=== PATIENT | male | born 1980 | race Caucasian/White ===

== ENCOUNTER 2016-08-21 00:10 | Emergency (ER) | payer MEDICARE, MEDICAID ==
[~2016-08-21] VITALS: Ht 180.3 cm; Wt 111.8 kg
[2016-08-21 00:10] VITALS: Ht 180.3 cm; Wt 111.8 kg
[~2016-08-21 00:10] MED LIST: ACET325T51 PO; ALBU18HF2 INH; AMOX500C2 PO; ATOR10TA20 PO; BENZ0.5T3 PO; DIVA250T48 PO; DIVA500T55 PO; DULO30CA52 PO; DULO60CA56 PO; ESOM40CA PO; FENO160T12 PO; HYDR28OI10 TOP; INFL100V IV; LACT10SO32 PO; MELO-273 PO; METO-107 PO; METO10TA3 PO; TRAM50TA53 PO; ZIPR80CA PO
--- OUTSIDE RECORDS SUMMARY | 2016-08-21 00:14 | XMS REPORT | Referral Summary ---
Author Author [facility] Organization [facility] Address Unknown Phone Unavailable Care Team Providers Care Interior Design Director Name Role Phone Julieta Smith Primary Care Physician [phone] Encounter [facility] [id number] Date(s): 07/02/16 - 07/02/16 [facility] [address] [place] [address] ANGELA Burgess [phone] Discharge Diagnosis: Ankylosing spondylitis (disorder) Discharge Diagnosis: High risk medication use Discharge Disposition: 01-Home or Self Care Attending Physician: Sadie Davies MD Admitting Physician: Sadie Davies MD Vital Signs Most recent to 1 oldest [Reference Range]: Peripheral Pulse 68 bpm Rate [60-100 bpm] (07/02/16 1:41 PM) Blood Pressure 130/60 mmHg [90-140/60-90 mmHg] (07/02/16 1:41 PM) Problem List Condition Effective Dates Status Health Status Informant Acne(Confirmed) Resolved Allergic rhinitis Active (disorder)(Confirmed ) Allergic Active rhinitis(Confirmed) Anxiety(Confirmed) Resolved Anxiety state Active (finding)(Confirmed) Bipolar(Confirmed) Resolved Bipolar disorder Active (disorder)(Confirmed ) Abnormal blood Active sugar(Confirmed) Sleep related Active hypoventilation/hypo xemia in other disease(Confirmed) Chronic Active headaches(Confirmed) Chronic Resolved sinusitis(Confirmed) Degenerative joint Active disease of pelvis (disorder)(Confirmed ) Depression(Confirmed Resolved ) Therapeutic drug Active monitoring(Confirmed ) Essential Active hypertension (disorder)(Confirmed ) Gastroesophageal Active reflux disease (disorder)(Confirmed ) Generalized Active pruritus(Confirmed) GERD Active (gastroesophageal reflux disease)(Confirmed) H/O: substance Resolved abuse(Confirmed) Hay fever(Confirmed) Active Head Resolved trauma(Confirmed) HTN(Confirmed) Resolved Hyperammonemia(Confi Active rmed) Hyperlipidemia(Confi Resolved rmed) ilioinguinal nerve Resolved entrapment-successfu l injection(Confirmed) Insomnia(Confirmed) Active Kidney Active disease(Confirmed) Kidney stone Active (disorder)(Confirmed ) Kidney Active stones(Confirmed) Ankylosing Active spondylitis (disorder)(Confirmed ) Mixed hyperlipidemia Active (disorder)(Confirmed ) OA Resolved (osteoarthritis)(Con firmed) Obesity(Confirmed) Active patient Severe obstructive Active sleep apnea(Confirmed) Overweight Active (finding)(Confirmed) Overweight(Confirmed Active ) Sinus Active infection(Confirmed) Apnea, Active sleep(Confirmed) Current Active smoker(Confirmed) Substance Active abuse(Confirmed) tylenol Resolved overdose-hospitaliza tion (discharged 03.08.12)(Confirmed) Ulcer(Confirmed) Active Allergies, Adverse Reactions, Alerts Substance Reaction Severity Status haloperidol allergy Active traZODone allergy Medium Active Adverse Reaction Medications albuterol 90 mcg/inh inhalation powder 2 puffs, Inhalation, q4hr, # 1 Each, 0 Refill(s), Pharmacy: [facility] Start Date: 08/16/15 Status: Ordered atorvastatin 10 mg oral tablet See Instructions, TAKE 1 TABLET BY MOUTH DAILY, # 28 tabs, 3 Refill(s), eRx: [facility] Start Date: 04/30/16 Status: Ordered benztropine 0.5 mg oral tablet 0.5 mg 1 tabs, Oral, Bedtime (once a day), from , # 30 tabs, 0 Refill(s), other reason (Rx) Start Date: 12/29/14 Status: Ordered Cymbalta 60 mg oral delayed release capsule 60 mg 1 caps, Oral, Daily, do not crush or chew, # 30 caps, 5 Refill(s), Pharmacy: [id number], 1 caps Oral Daily,Instr:do not crush or chew Start Date: 01/10/15 Status: Ordered divalproex sodium 500 mg oral tablet, extended release See Instructions, Takes 1750mg daily, 0 Refill(s) Start Date: 07/11/14 Status: Ordered DULoxetine 30 mg oral delayed release capsule 30 mg 1 caps, Oral, Daily, # 30 caps, 5 Refill(s), Pharmacy: [id number], 1 caps Oral Daily Start Date: 01/10/15 Status: Ordered fenofibrate 160 mg oral tablet See Instructions, TAKE 1 TABLET BY MOUTH EVERY DAY, # 28 tabs, 3 Refill(s), [facility] : [facility] Start Date: 04/30/16 Status: Ordered Geodon 20 mg oral capsule See Instructions, 4 caps in am and 4 caps in pm, # 720 caps, 0 Refill(s), other reason (Rx) Start Date: 12/29/14 Status: Ordered hydrocortisone 1% topical cream See Instructions, APPLY TOPICALLY TO AFFECTED AREA TWICE A DAY, # 28.35 g, [facility]: [facility] Start Date: 05/08/16 Status: Ordered Keflex 500 mg oral capsule 500 mg 1 caps, Oral, QID, X 5 days, # 20 caps, 0 Refill(s), [facility]: [facility], 1 caps Oral QID,x5 days Start Date: 07/01/16 Stop Date: 07/06/16 Status: Ordered lactulose 10 g/15 mL oral and rectal liquid See Instructions, TAKE 30 MLS BY MOUTH TWICE DAILY, # 1,800 mL, 1 Refill(s), [facility]: [facility], TAKE 30 MLS BY MOUTH TWICE DAILY Start Date: 03/28/16 Status: Ordered meloxicam 7.5 mg oral tablet 7.5 mg 1 tabs, Oral, BID, # 180 tabs, 1 Refill(s), [facility]acy: [facility], 1 tabs Oral BID Start Date: 07/01/16 Status: Ordered metoclopramide 10 mg oral tablet See Instructions, TAKE ONE TABLET BY MOUTH EVERY DAY NEEDED FOR GERD/ HEARTBURN, # 28 tabs, 3 Refill(s), [facility]: [facility] Start Date: 04/30/16 Status: Ordered Metoprolol Succinate ER 50 mg oral tablet, extended release See Instructions, TAKE 1 TABLET BY MOUTH ONCE A DAY, # 28 tabs, 3 Refill(s), [facility] : [facility] Start Date: 04/30/16 Status: Ordered NexIUM 40 mg oral delayed release capsule See Instructions, TAKE ONE CAPSULE BY MOUTH EVERY DAY FOR GERD, # 28 caps, 3 Refill(s), [facility]: [facility] Start Date: 04/30/16 Status: Ordered Remicade 100 mg intravenous injection See Instructions, 5 mg/kg IV q 6 weeks, # 1 Each, 0 Refill(s), Indication: M45.9 , other reason (Rx) Start Date: 02/13/16 Status: Ordered traMADol 50 mg oral tablet 50 mg 1 tabs, Oral, QID, as needed for pain, #120 MUST LAST 30 DAYS - QOL NOTE THE CHANGE IN QUANTITY, # 120 tabs, 0 Refill(s) Start Date: 06/20/16 Status: Ordered Results No data available for this section Immunizations Given and Recorded Vaccine Date Status Refusal Reason tetanus/diphth/pertuss (Tdap) adult/adol 06/22/13 Recorded tetanus/diphth/pertuss (Tdap) adult/adol 03/10/13 Recorded influenza virus vaccine, inactivated 03/18/14 Recorded influenza virus vaccine, inactivated 03/10/13 Recorded influenza virus vaccine, live 03/10/13 Given influenza virus vaccine, live 02/11/12 Given pneumococcal 13-valent conjugate vaccine1 06/22/13 Given pneumococcal 23-polyvalent vaccine 06/22/13 Given pneumococcal 23-polyvalent vaccine 03/10/13 Recorded 1Result Comment: [01/10/2015 Uncharted] Uploaded in Error - CC Procedures Procedure Date Related Diagnosis Body Site Esophagogastroduodenoscopy and biopsy1 04/28/14 Hospital admission 07/29/10 Hip replacement 2003 1Negative For Gaffney's. Slight narrowing of distal esophagus dilated to 54 [place] Social History Social History Type Response Smoking Status Current every day smoker; Type: Cigarettes; Tobacco use per day: More than 1 pack Assessment and Plan No data available for this section
--- OUTSIDE RECORDS SUMMARY | 2016-08-21 00:14 | XMS REPORT | Continuity of Care Document ---
Author Author [facility] Organization [facility] Address Unknown Phone Unavailable Allergies Active Description Code Type Severity Reaction Onset Reported/Identified Relationship to Patient Clinical Status Yes NO NAME AVAILABLE 14208 DRUG N/A N/A Yes haloperidol NKMA N/A allergy 09/08/2013 Yes traZODone NKMA Medium allergy Adverse Reaction 09/08/2013 Yes HALOPERIDOL 45293 DRUG INGREDI High Anaphylaxis 07/05/2016 07/05/2016 Yes TRAZODONE 63623 DRUG INGREDI N/A Other 07/05/2016 07/05/2016 Medications Medication Packaging Start Date Stop Date Route Dosage Sig ALUM T MAG HYDROXIDE-SIMETH 200-200-20 MG/5ML PO SUSP 07/05/2016 Oral 30 4 TIMES DAILY PRN OLANZAPINE 10 MG PO TBDP 07/05/2016 Oral 10 2 TIMES DAILY PRN ACETAMINOPHEN 325 MG PO TABS 07/05/2016 Oral 650 EVERY 6 HOURS PRN NICOTINE POLACRILEX 2 MG MT LOZG 07/05/2016 Oral 2 EVERY 2 HOURS PRN MAGNESIUM HYDROXIDE 400 MG/5ML PO SUSP 07/05/2016 Oral 30 DAILY PRN QUETIAPINE FUMARATE 25 MG PO TABS 07/05/2016 Oral 25 4 TIMES DAILY PRN NICOTINE 21 MG/24HR TD PT24 07/06/2016 Transdermal 2 DAILY ZIPRASIDONE HCL 40 MG PO CAPS 07/06/2016 Oral 80 2 TIMES DAILY WITH MEALS LACTULOSE 20 G PO PACK 07/06/2016 Oral 10 DAILY PRN METOCLOPRAMIDE HCL 10 MG PO TABS 07/06/2016 Oral 10 DAILY PRN ALBUTEROL SULFATE HFA 108 (90 BASE) MCG/ACT IN AERS 07/06/2016 Inhalation 2 EVERY 4 HOURS PRN MELOXICAM 7.5 MG PO TABS 07/06/2016 Oral 7.5 2 TIMES DAILY PRN FENOFIBRATE 160 MG PO TABS 07/06/2016 Oral 160 DAILY BENZTROPINE MESYLATE 1 MG PO TABS 07/06/2016 Oral 0.5 2 TIMES DAILY DIVALPROEX SODIUM ER 500 MG PO TB24 07/06/2016 Oral 1500 DAILY DIVALPROEX SODIUM ER 250 MG PO TB24 07/06/2016 Oral 250 DAILY CEPHALEXIN 500 MG PO CAPS 07/06/2016 Oral 1000 2 TIMES DAILY PANTOPRAZOLE SODIUM 40 MG PO TBE 07/07/2016 Oral 40 EVERY MORNING BEFORE BREAKFAST PANTOPRAZOLE SODIUM 40 MG PO TBEC 07/07/2016 Oral 40 EVERY MORNING BEFORE BREAKFAST METOPROLOL SUCCINATE ER 50 MG PO TB24 07/07/2016 Oral 50 DAILY DULOXETINE HCL 30 MG PO CPEP 07/07/2016 Oral 60 DAILY ONDANSETRON 4 MG PO TBDP 07/07/2016 Oral 4 EVERY 6 HOURS PRN Problems Procedures Results Test Result Range CBC With Platelet and Differential - 12/15/15 18:19 Absolute Basophils 0.11 10*3/uL 0.00- 0.30 Absolute Eosinophils 0.22 10*3 0.00-0.60 Absolute Lymphocytes 2.85 10*3 1.00-4.00 Absolute Monocytes 0.92 10*3 0.20-0.80 Absolute Neutrophils 9.22 10*3 2.50-7.00 Basophils 1 % 0-2 Eosinophils 2 % 0-6 HCT 37.5 % 40.0-54.0 HGB 12.6 g/dL 12.0-16.0 Lymphocytes 21 % 20-40 MCH 28.1 pg 26.0-34.0 MCHC 33.6 g/dL 32.0-36.0 MCV 83.5 fL 80.0-96.0 Monocytes 7 % 4-8 MPV 9.9 fL 8.8-14.8 Neutrophils 69 % 50-70 Platelet Count 346 K/uL 150-400 RBC 4.49 10*6/uL 3.70-5.20 RDW 13.0 % 0.0-14.5 WBC 13.3 K/uL 5.0-10.0 i-STAT Metabolic Panel WB - 12/15/15 18:19 BUN Venous <3 mg/dl 8-26 Calcium Ionized Venous 1.17 mmol/L 1.10- 1.30 Creatinine Venous 0.8 mg/dL 0.7-1.3 Glucose Venous 99 mg/dL 70-100 Potassium, WB 2.6 mmol/L 3.5-5.1 Sodium Venous 139 mmol/L 136-145 Total CO2 Venous 27 mmol/L 24-29 Venous CL 97 mmol/L 98-109 Quantiferon TB Test - 02/13/16 14:55 Quantiferon TB Test Negative NA Negative TSH (REFLEX FREE T4 IF ABNORMAL) - 07/06/16 05:54 TSH 0.476 uIU/mL 0.400-4.000 VALPROIC ACID LEVEL, TOTAL - 07/08/16 06:28 VALPROIC ACID(DEPAKENE) 30 ug/mL 50-100 Encounters ACCT No. Visit Date/Time Discharge Status Pt. Type Provider Facility Loc./Unit Complaint [id number] 06/22/2013 10:19:00 06/22/2013 23 :59:59 CLS Outpatient
--- OUTSIDE RECORDS SUMMARY | 2016-08-21 00:15 | XMS REPORT | Continuity of Care Document ---
Author Author [facility] Organization [facility] Address Unknown Phone Unavailable Care Team Providers Care Barber Apprentice Name Role Phone PATRIZIA ONOFRE MD Primary Care Physician [phone] Insurance Providers Payer Name Policy Number Subscriber Name Relationship Medicare [id number] Pravin Melton 18 Self Mj True Fit Plan [id number] Pravin Melton 18 Self Problems Medical Problems Problem Onset Date Status NON-TOXIC INGESTION Unknown Active Bronchitis Unknown Active Mild volume depletion Unknown Active Aggie Unknown Active Puncture wound Unknown Active Puncture wound Unknown Active Sore throat Unknown Active Medications Medication Dose Route Sig Days/Qty Instructions Order Date Discontinued Date Status Ziprasidone Hcl 80 Mg PO TWICE A DAY 12/09/09 03/07/12 Discontinued Sertraline Hcl 1.5 Tab PO DAILY 04/11/08 10/06/09 Discontinued Gabapentin 1 Tab PO TWICE A DAY 12/09/09 12/20/11 Discontinued Esomeprazole Mag Trihydrate 1 Cap PO DAILY 04/11/08 10/06/09 Discontinued Atorvastatin Calcium 1 Tab PO DAILY 12/09/09 11/13/10 Discontinued Hydrocodone Bit/Acetaminophen 1 Tab PO TID PRN 04/11/08 07/12/09 Discontinued Trazodone Hcl 150 Mg PO BEDTIME 06/15/08 04/15/09 Discontinued Doxycycline Hyclate 100 Mg PO DAILY 06/15/08 07/12/09 Discontinued Adalimumab 40 Mg SQ TWICE A MONTH 12/09/09 08/13/10 Discontinued [Bystolic] 12/09/09 08/13/10 Discontinued Duloxetine Hcl 1 Tab PO DAILY 12/09/09 Active Dextromethorphan Hbr 1 Cap PO DAILY 12/09/09 08/13/10 Discontinued Esomeprazole Mag Trihydrate DAILY 12/09/09 12/20/11 Discontinued [Metoprolol] 12/09/09 09/04/10 Discontinued [Saphris] 1 Tab PO DAILY 12/09/09 08/13/10 Discontinued Divalproex Sodium 250 Mg PO DAILY 11/13/10 12/20/11 Discontinued Divalproex Sodium 1,000 Mg PO BEDTIME 12/20/11 03/07/12 Discontinued Esomeprazole Mag Trihydrate 40 Mg PO DAILY 12/20/11 Active Gabapentin 400 Mg PO TWICE A DAY 12/20/11 Active Diphenhydramine Hcl 25 Mg PO NEEDED 12/20/11 Active Divalproex Sodium 1,000 Mg PO DAILY 12/20/11 Active Paliperidone Palmitate 156 Mg IM MONTHLY 12/20/11 03/07/12 Discontinued Lorazepam 0.25 Mg PO TWICE A DAY 12/20/11 Active Propranolol Hcl 10 Mg PO DAILY 12/20/11 Active Risperidone 1 Mg PO BEDTIME 12/20/11 03/07/12 Discontinued Metoclopramide Hcl 10 Mg PO NEEDED 12/20/11 Active Metoprolol Succinate 50 Mg PO DAILY 12/20/11 Active Atorvastatin Calcium 10 Mg PO DAILY 12/20/11 04/06/12 Discontinued Ziprasidone Hcl 80 Mg PO TWICE A DAY 04/06/12 Active Atorvastatin Calcium 10 Mg PO DAILY 09/05/12 Active Infliximab Unknown Dose IV Q2MO 04/10/14 Active Tramadol HCl 50 Mg PO TWICE A DAY PRN PAIN 04/10/14 Active Albuterol Sulfate 1 Mcg INH NEEDED 04/27/14 Active Sucralfate 1200 Qty 04/27/14 Active Esomeprazole Magnesium 1 Tab PO DAILY 30 Qty 04/27/14 Active Famotidine 1 Tab PO TWICE A DAY 04/27/14 Active Social History Social History Problem Response Recorded Date/Time Chewing Tobacco Status No 06/15/2013 4:55am Hx Substance Use N HX OF SUBSTANCE ABUSE/MARIJUANA PER HX 05/12/2014 12:15am Hx Alcohol Use No 05/12/2014 12:15am Has the pt used tobacco in the last 12 months Yes 04/27/2014 8:23am Tobacco Usage smoke 04/09/2014 10:53pm Query Response Start Date Stop Date Smoking Status Current every day smoker Hospital Discharge Instructions No hospital discharge instructions. Plan of Care No plan of care. Functional Status Query Response Date Recorded Physical Hygiene Self May 12, 2014 12:15am Disabilities None May 12, 2014 12:15am Devices Used None May 12, 2014 12:15am Dressing Self May 12, 2014 12:15am Ambulation Self May 12, 2014 12:15am Diet Self May 12, 2014 12:15am Mental Status Alert May 12, 2014 12:54am Disabilities None May 12, 2014 12:15am Devices Used None May 12, 2014 12:15am Physical Hygiene Self May 12, 2014 12:15am Dressing Self May 12, 2014 12:15am Ambulation Self May 12, 2014 12:15am Diet Self May 12, 2014 12:15am Allergies, Adverse Reactions, Alerts Allergen Type Severity Reaction Status Last Updated Haloperidol Allergy Severe SEIZURE Active 05/12/14 Trazodone Allergy Unknown PRIAPRISM Active 05/12/14 Immunizations Name Given Type Hx Influenza Vaccination Y JAN 2012 Historical Hx Pneumococcal Vaccination No Historical Hx Tetanus, Diptheria, Pertussis No Historical Hx Influenza Vaccination Y JAN 2012 Historical Hx Tetanus Diptheria No Historical Hx Tetanus, Diptheria, Pertussis No Historical Hx Tetanus Toxoid Vaccination No Historical Vital Signs Acute Vital Signs Vital Response Date/Time Temperature (Fahrenheit) 97.8 deg F (96.8 - 99.1) Temperature (Calculated Celsius) 36.72477 degrees C (36.0 - 37.3) Pulse Rate (adult) 81 bpm (60 - 100) Respiratory Rate 19 breaths/min (10 - 20) O2 Sat by Pulse Oximetry 96 % (90 - 100) Blood Pressure 129/73 mm Hg Height (Feet) 5 feet Height (Inches) 11.00 inches Weight (Kilograms) 117.0 kg Body Mass Index (BMI) 40.0 Results Test Source Date Result Interp. Ref. Range Comments Acetaminophen Level April 09, 2014 10:40pm < 10 UG/ML L 10-30 TOXIC <4 HR POST INGESTION: >150 MG/L;TOXIC <12 HR POST INGESTION: >50 MG/L Activated Partial Thromboplast Time March 07, 2012 8:15pm 33.0 SEC N 24-36 Alanine Aminotransferase (ALT/SGPT) April 09, 2014 10:40pm 35 U/L N 21-72 Albumin April 09, 2014 10:40pm 4.2 G/DL N 3.5-5.0 Albumin/Globulin Ratio April 09, 2014 10:40pm 1.4 RATIO N 1.1-2.2 Alcohol, Quantitative April 09, 2014 10:40pm <10 MG/DL - Alkaline Phosphatase April 09, 2014 10:40pm 65 U/L N 38-126 Amylase Level September 16, 2010 4:30am 38 U/L N 30-110 Anion Gap April 09, 2014 10:40pm 12 MEQ/L N 5-15 Aspartate Amino Transf (AST/SGOT) April 09, 2014 10:40pm 24 U/L N 17- 59 BUN/Creatinine Ratio April 09, 2014 10:40pm 10 RATIO N 6-26 Band Neutrophils # June 15, 2013 5:15am 2.9 T/MM3 - Band Neutrophils % June 15, 2013 5:15am 19.0 % DH 0-6 Basophils # (Auto) April 09, 2014 10:40pm 0.3 T/MM3 H 0-0.2 Basophils # (Manual) March 07, 2012 8:15pm 0.2 T/MM3 N 0-0.2 Basophils % (Manual) March 07, 2012 8:15pm 1.0 % N 0-2 Basophils (%) (Auto) April 09, 2014 10:40pm 1.6 % N 0-2 Blood Urea Nitrogen April 09, 2014 10:40pm 8.0 MG/DL L 9-20 Calcium Level April 09, 2014 10:40pm 9.7 MG/DL N 8.4-10.2 Calculated Osmolality April 09, 2014 10:40pm 266 MOSM/KG N 261-280 Carbon Dioxide Level April 09, 2014 10:40pm 32 MEQ/L H 22-30 Chloride Level April 09, 2014 10:40pm 95 MEQ/L L 98-107 Cholesterol Level July 29, 2010 12:10am 120 MG/DL L 132-199 Cholesterol/HDL Ratio July 29, 2010 12:10am 4.4 RATIO N 0-5.0 Conjugated Bilirubin September 05, 2012 5:50am 0.00 MG/DL N 0.00-0.30 Creatinine April 09, 2014 10:40pm 0.8 MG/DL N 0.8-1.5 Differential Total Cells Counted September 16, 2010 4:30am 100 % - Eosinophils # (Auto) April 09, 2014 10:40pm 0.2 T/MM3 N 0-0.5 Eosinophils # (Manual) September 05, 2012 5:50am 0.9 T/MM3 H 0-0.5 Eosinophils % (Manual) September 05, 2012 5:50am 6.0 % H 0-4 Eosinophils (%) (Auto) April 09, 2014 10:40pm 1.3 % N 0-4 Globulin April 09, 2014 10:40pm 3.0 G/DL N 2.4-3.6 Glucose Level April 09, 2014 10:40pm 92 MG/DL N 75-110 Group A Streptococcus Screen September 16, 2010 4:05am Negative - Strep culture confirmation to follow Hematocrit April 09, 2014 10:40pm 41.5 % N 41-53 Hemoglobin April 09, 2014 10:40pm 14.7 GM/DL N 13.5-17.5 Influenza Type A Antigen June 15, 2013 5:12am Negative - Negative for Flu A protein antigen. Assay sensitivity isbetween 65-83%. A negative result does not exclude influenza virus infection. "Influenza FA" may be ordered if clinical presentation warrants confirmatory testing. Influenza Type B Antigen June 15, 2013 5:12am Negative - Negative for Flu B protein antigen. Assay sensitivity isbetween 65-83%. A negative result does not exclude influenza virus infection. "Influenza FA" may be ordered if clinical presentation warrants confirmatory testing. LDL Cholesterol, Calculated July 29, 2010 12:10am 52.4 L 66-159 Lipase September 05, 2012 5:50am 288 U/L N 23-300 Lymphocytes # (Auto) April 09, 2014 10:40pm 4.3 T/MM3 N 1-4.8 Lymphocytes # (Manual) June 15, 2013 5:15am 2.0 T/MM3 N 1-4.8 Lymphocytes % (Manual) June 15, 2013 5:15am 13.0 % L 23-45 Lymphocytes (%) (Auto) April 09, 2014 10:40pm 27.3 % N 23-45 Magnesium Level September 05, 2012 5:50am 1.2 MG/DL L 1.6-2.3 Mean Corpuscular Hemoglobin April 09, 2014 10:40pm 29.7 UUG N 26-34 Mean Corpuscular Hemoglobin Concent April 09, 2014 10:40pm 35.4 GM/DL N 31-37 Mean Corpuscular Volume April 09, 2014 10:40pm 83.8 UM3 N 80-100 Mean Platelet Volume April 09, 2014 10:40pm 10.2 UM3 N 9.4-12.4 Monocytes # (Auto) April 09, 2014 10:40pm 1.3 T/MM3 H 0-0.8 Monocytes # (Manual) June 15, 2013 5:15am 0.8 T/MM3 N 0-0.8 Monocytes % (Manual) June 15, 2013 5:15am 5.0 % N 0-9.0 Monocytes (%) (Auto) April 09, 2014 10:40pm 8.2 % N 0-9.0 Neutrophils # (Auto) April 09, 2014 10:40pm 9.5 T/MM3 H 1.8-7.7 Neutrophils # (Manual) June 15, 2013 5:15am 9.6 T/MM3 H 1.8-7.7 Neutrophils % (Manual) June 15, 2013 5:15am 63.0 % N 33-66 Neutrophils (%) (Auto) April 09, 2014 10:40pm 61.2 % N 33-66 Phosphorus Level September 05, 2012 5:50am 3.5 MG/DL N 2.5-4.5 Platelet Count April 09, 2014 10:40pm 305 T/MM3 N 130-400 Potassium Level April 09, 2014 10:40pm 3.3 MEQ/L L 3.6-5 Prothromb Time International Ratio March 07, 2012 8:15pm 1.06 N 0.86- 1.10 THERAPUTIC RANGE=2.00-3.00 FOR ANTI-THROMBOSIS THERAPUTIC RANGE=2.50- 3.50 FOR IMPLANTED VALVE RDW Standard Deviation April 09, 2014 10:40pm 38.9 FL N 36.9-50.2 Red Blood Count April 09, 2014 10:40pm 4.95 M/MM3 N 4.50-5.90 Salicylates Level April 09, 2014 10:40pm < 1.0 MG/DL L 2-20 Sodium Level April 09, 2014 10:40pm 139 MEQ/L N 134-144 Tests Not Done April 15, 2009 3:20am Not done - Has specimen been collected/obtained? Y Thyroid Stimulating Hormone (TSH) April 09, 2014 10:40pm 1.41 MIU/L N 0.47-4.68 Total Bilirubin April 09, 2014 10:40pm 0.40 MG/DL N 0.20-1.30 Total Protein April 09, 2014 10:40pm 7.2 G/DL N 6.3-8.2 Triglycerides Level July 29, 2010 12:10am 203 MG/DL H 40-160 Troponin I September 16, 2010 4:30am 0.013 ng/ml N 0-0.12 Unconjugated Bilirubin September 05, 2012 5:50am 0.00 MG/DL N 0.00-1.10 Urine Bilirubin April 09, 2014 10:34pm Negative - Has specimen been collected/obtained? Y Urine Blood April 09, 2014 10:34pm Negative - Has specimen been collected/obtained? Y Urine Collection Type April 09, 2014 10:34pm Cleancatch-midstream - Has specimen been collected/obtained? Y Urine Color April 09, 2014 10:34pm Yellow - Has specimen been collected/obtained? Y Urine Culture Indicated March 07, 2012 9:25pm Cult not indicated - Has specimen been collected/obtained? Y Urine Drug Screen Confirmation September 05, 2012 6:30am Sent out - Urine Glucose (UA) April 09, 2014 10:34pm Negative - Has specimen been collected/obtained? Y Urine Ketones April 09, 2014 10:34pm Negative - Has specimen been collected/obtained? Y Urine Leukocyte Esterase April 09, 2014 10:34pm Negative - Has specimen been collected/obtained? Y Urine Nitrite April 09, 2014 10:34pm Negative - Has specimen been collected/obtained? Y Urine Protein April 09, 2014 10:34pm Negative - Has specimen been collected/obtained? Y Urine RBC April 11, 2008 6:00am Not Performed - Urine Specific [place] April 09, 2014 10:34pm 1.010 L - Has specimen been collected/obtained? Y Urine Turbidity April 09, 2014 10:34pm Clear - Has specimen been collected/obtained? Y Urine Urobilinogen April 09, 2014 10:34pm 0.2 EU/DL - Has specimen been collected/obtained? Y Urine WBC April 11, 2008 6:00am Not Performed - Urine pH April 09, 2014 10:34pm 6.5 - Has specimen been collected/ obtained? Y VLDL Cholesterol July 29, 2010 12:10am 40.6 MG/DL H 0-28 Valproic Acid (Depakene) Level September 05, 2012 5:50am 80.0 UG/ML N 50- 120 White Blood Count April 09, 2014 10:40pm 15.6 T/MM3 H 4.5-11.0 Chemistry Specimen Hemolysis April 09, 2014 10:40pm < 15 0-25 0-25 : No Hemolysis.26-70: Slight Hemolysis - can falsely elevate K and Urine Protein. 71-285: Moderate Hemolysis - can falsely elevate K, Troponin I, CA 19-9, PTH, CSF GLucose, and Urine Protein, and can falsely decrease Phenytoin. 286-999: Gross Hemolysis - can falsely elevate K, Troponin I, CA 19-9, PTH, CSF Glucose, and Urine Protine, and can falsely decrease Phenytoin. Recommend specimen recollection. Urinalysis Comment April 09, 2014 10:34pm Microscopic not ind. - Has specimen been collected/obtained? Y Glucometer December 09, 2009 9:39am 100 mg/dL N 75-110 Lab Scanned Report April 10, 2014 3:42am REFERENCE LAB [id number] - EKG April 15, 2009 3:30am Complete - HDL Cholesterol Direct July 29, 2010 12:10am 27 MG/DL L 40-60 Urine Methadone Screen May 08, 2013 6:05pm Negative NG/ML - Turbidity April 09, 2014 10:40pm < 20 0-20 Reactive Lymphocytes % September 16, 2010 4:30am 3.0 % H 0-0 Glomerular Filtration Rate Calc April 09, 2014 10:40pm 111 - Reactive Lymphocytes # September 16, 2010 4:30am 0.4 T/MM3 H 0-0 Immature Granulocyte # (Auto) April 09, 2014 10:40pm 0.06 T/MM3 H 0.00-0.03 Immature Granulocyte % (Auto) April 09, 2014 10:40pm 0.4 % N 0.0-0.5 Venous Blood Lactate June 15, 2013 5:15am 2.0 MMOL/L N 0.6-2.2 Procalcitonin June 15, 2013 5:15am 0.26 NG/ML - PCT </=0.5 ng/mL - sepsis not likely;PCT >0.5 and </=2 ng/mL - sepsis possible; PCT >2 ng/mL - sepsis likely; PCT >/=10 ng/mL - systemic inflammatory response - sepsis or septic shock highly indicated. Icterus Index April 09, 2014 10:40pm < 2 0-7 Urine Acetaminophen Screen May 08, 2013 6:05pm Negative NG/ML - Urine Microscopic Not Indicated March 07, 2012 9:25pm Not indicated - Has specimen been collected/obtained? Y Blood Culture Blood June 15, 2013 5:15am NO GROWTH AFTER 5 DAYS Group A Streptococcus Culture Throat September 16, 2010 4:47am Helicobacter pylori Rapid Urease Gastric Biopsy April 28, 2014 8:34am Name: PRAVIN MELTON Unit #: [id number] : [id number] Sex: M Loc / Svc: ED DOS: 05/06/14 Signed Report #: [id number] DIAGNOSTIC IMAGING REPORT TYPE OF EXAM: FOOT RIGHT 2 VIEWS Dictated By: DREW GOMEZ MD Indication: ITS.REASON: r/o foreign body Comparison: None Findings: There is no acute fracture, dislocation or malalignment identified. Small thin linear density seen in the medial most soft tissues of the fourth toe adjacent to the distal aspect of the proximal phalanx measuring 2 mm in length. Impression: Tiny possible foreign body in the medial soft tissues of the fourth toe. This is positioned superficially at the distal aspect of the proximal phalanx. . Procedures Procedure Status Date Provider(s) COMPREHEN METABOLIC PANEL completed 04/09/14 ASSAY OF SALICYLATE completed 04/09/14 URINALYSIS AUTO W/O SCOPE completed 04/09/14 ASSAY OF ACETAMINOPHEN completed 04/09/14 ASSAY OF ETHANOL completed 04/09/14 ASSAY THYROID STIM HORMONE completed 04/09/14 COMPLETE CBC W/AUTO DIFF WBC completed 04/09/14 HYDRATION IV INFUSION INIT completed 04/09/14 EMERGENCY DEPT VISIT completed 04/09/14 [id number] ITEM OR SERVICE completed 04/09/14 completed 04/09/14 [id number]"INFUSION, NORMAL SALINE SOLUTION , 1000 CC" completed 04/09/14 EGD BIOPSY SINGLE/MULTIPLE completed 04/28/14 FLOYD ARROYO MD, FACS, CWS ESOPH EGD DILATION <30 MM completed 04/28/14 FLOYD ARROYO MD, FACS, CWS CULTURE SCREEN ONLY completed 04/28/14 TISSUE EXAM BY PATHOLOGIST completed 04/28/14 SPECIAL STAINS GROUP 1 completed 04/28/14 [id number]"RINGERS LACTATE INFUSION, UP TO 1000 CC" completed 04/28/14 Encounters Encounter Location Date/Time Departed Emergency Room [facility] 05/12/14 12:08am Departed Emergency Room [facility] 05/06/14 4:42pm Departed Emergency Room [facility] 04/09/14 10:17pm Recent Diagnosis
--- OUTSIDE RECORDS SUMMARY | 2016-08-21 00:15 | XMS REPORT | Continuity of Care Document ---
Author Author [facility] Organization [facility] Address Unknown Phone Unavailable Care Team Providers Care Slot Supervisor Name Role Phone PATRIZIA ONOFRE MD Primary Care Physician [phone] Insurance Providers Payer Name Policy Number Subscriber Name Relationship Medicare [id number] Pravin Melton 18 Self Mj [employer] Plan [id number] Pravin Melton 18 Self Problems Medical Problems Problem Onset Date Status NON-TOXIC INGESTION Unknown Active Bronchitis Unknown Active Mild volume depletion Unknown Active Aggie Unknown Active Puncture wound Unknown Active Puncture wound Unknown Active Medications Medication Dose Route Sig [...] N HX OF SUBSTANCE ABUSE/MARIJUANA PER HX 05/06/2014 5:15pm Hx Alcohol Use No 05/06/2014 5:15pm Has the pt used tobacco in the last 12 months Yes 04/27/2014 8:23am Tobacco Usage smoke 04/09/2014 10:53pm Query Response Start Date Stop Date Smoking Status Unknown if ever smoked Hospital Discharge Instructions No hospital discharge instructions. Plan of Care No plan of care. Functional Status Query Response Date Recorded Physical Hygiene Self May 06, 2014 5:15pm Disabilities None May 06, 2014 5:15pm Devices Used None May 06, 2014 5:15pm Dressing Self May 06, 2014 5:15pm Ambulation Self May 06, 2014 5:15pm Diet Self May 06, 2014 5:15pm Mental Status Alert Oriented May 06, 2014 5:15pm Disabilities None May 06, 2014 5:15pm Devices Used None May 06, 2014 5:15pm Physical Hygiene Self May 06, 2014 5:15pm Dressing Self May 06, 2014 5:15pm Ambulation Self May 06, 2014 5:15pm Diet Self May 06, 2014 5:15pm Allergies, Adverse Reactions, Alerts Allergen Type Severity Reaction Status Last Updated Haloperidol Allergy Severe SEIZURE Active 04/09/14 Trazodone Allergy Unknown PRIAPRISM Active 04/09/14 Immunizations Name Given Type Hx Influenza Vaccination Y JAN 2012 Historical Hx Pneumococcal Vaccination No Historical Hx Tetanus, Diptheria, Pertussis No Historical Hx Influenza Vaccination Y JAN 2012 Historical Hx Tetanus Diptheria No Historical Hx Tetanus, Diptheria, Pertussis No Historical Hx Tetanus Toxoid Vaccination No Historical Vital Signs Acute Vital Signs Vital Response Date/Time Temperature (Fahrenheit) 97.6 deg F (96.8 - 99.1) Temperature (Calculated Celsius) 36.45045 degrees C (36.0 - 37.3) Pulse Rate (adult) 105 bpm (60 - 100) Respiratory Rate 18 breaths/min (10 - 20) O2 Sat by Pulse Oximetry 95 % (90 - 100) Oxygen Flow Rate 2.00 L/min Blood Pressure 150/90 mm Hg Height 5 ft 11 in Weight 257 lb Body Mass Index 35.0 kg/m^2 Results Test Source Date Result Interp. Ref. [...] 2008 6:00am Not Performed - Urine Specific [place] April 09, 2014 10:34pm 1.010 L - [...] Report April 10, 2014 3:42am REFERENCE LAB [id number] - EKG April 15, 2009 3:30am Complete [...] Urease Gastric Biopsy April 28, 2014 8:34am Procedures Procedure Status Date Provider(s) COMPREHEN METABOLIC PANEL completed 04/09/14 ASSAY OF SALICYLATE completed 04/09/14 URINALYSIS AUTO W/O SCOPE completed 04/09/14 ASSAY OF ACETAMINOPHEN completed 04/09/14 ASSAY OF ETHANOL completed 04/09/14 ASSAY THYROID STIM HORMONE completed 04/09/14 COMPLETE CBC W/AUTO DIFF WBC completed 04/09/14 HYDRATION IV INFUSION INIT completed 04/09/14 EMERGENCY DEPT VISIT completed 04/09/14 [id number] ITEM OR SERVICE completed 04/09/14 completed 04/09/14 [id number]"INFUSION, NORMAL SALINE SOLUTION , 1000 CC" completed 04/09/14 EGD BIOPSY SINGLE/MULTIPLE completed 04/28/14 FLOYD ARROYO MD, FACS, CWS ESOPH EGD DILATION <30 MM completed 04/28/14 FLOYD ARROYO MD, FACS, CWS CULTURE SCREEN ONLY completed 04/28/14 TISSUE EXAM BY PATHOLOGIST completed 04/28/14 SPECIAL STAINS GROUP 1 completed 04/28/14 [id number]"RINGERS LACTATE INFUSION, UP TO 1000 CC" completed 04/28/14 Encounters Encounter Location Date/Time Departed Emergency Room [facility] 05/06/14 4:42pm Departed Emergency Room [facility] 04/09/14 10:17pm Recent Diagnosis
--- OUTSIDE RECORDS SUMMARY | 2016-08-21 00:15 | XMS REPORT | Continuity of Care Document ---
Author Author [place] Organization [facility] Address Unknown Phone Unavailable Support Name Relationship Address Phone RITIKA WILLINGHAM MD Caregiver [address] [place] [address] Unavailable SEPTEMBERJEANNIE DO Caregiver [address] [place] [address] Unavailable KEYA MELTON Next Of Kin [address] [place], [place] [id number] Insurance Providers Guarantor Pravin Melton Address [address] [place] [address] Email DENIED 07-11-16 Payer [facility] [employer] Plan Policy Number [id number] Subscriber's Name Pravin Melton Relationship 18 Self Effective Date 16 Expiration Date 16 Payer Medicare Policy Number [id number] Subscriber's Name Pravin Melton Relationship 18 Self Effective Date 04 Chief Complaint and Reason for Visit Chief Complaint Psychiatric Problems Reason for Visit [id number] Anger reaction Problems Active Problems Medical Problem Onset Date Status Abuse, drug or alcohol Unknown Chronic Ankylosing spondylitis Unknown Chronic Anxiety Unknown Acute Bipolar 1 disorder Unknown Chronic Bronchitis Unknown Acute Depression Unknown Acute GERD (gastroesophageal reflux disease) Unknown Chronic Headache Unknown Acute History of attempted suicide Unknown Acute Hx of head injury Unknown Hyperlipidemia Unknown Chronic Hypertension Unknown Chronic Hypomagnesemia Unknown Acute Intentional overdose of drug in tablet form Unknown Acute Leukocytosis Unknown Acute Aggie Unknown Acute Mild volume depletion Unknown Acute NON-TOXIC INGESTION Unknown Acute Nephrolithiasis Unknown Chronic OA (osteoarthritis) Unknown Chronic Obesity Unknown Chronic Patient left without being seen Unknown Acute Polysubstance overdose Unknown Acute Puncture wound Unknown Acute Puncture wound Unknown Acute Somnolence Unknown Acute Sore throat Unknown Acute Suicide attempt Unknown Acute Suicide attempt by multiple drug overdose Unknown Acute Tobacco dependence Unknown Chronic Past Problems Medical Problem Onset Date Anger reaction Unknown Chest pain Unknown Headache Unknown Hypokalemia Unknown Leukocytosis Unknown Person with feared complaint in whom no diagnosis is made Unknown Right lower quadrant abdominal pain Unknown Suicidal ideation Unknown Medications Current Home Medications Medication Dose Units Route Directions Days Qty Instructions Start Date Acetaminophen 325 Mg Tablet 650 Mg Oral Every 4 Hours as needed for Pain 12/15/15 Albuterol Sulfate (Ventolin Hfa 90 Mcg/Actuation) 18 Gm Hfa.aer.ad 2 Puff Inhalation Every 4 Hours as needed for Wheezing 12/15/15 Amoxicillin 500 Mg Capsule 500 Mg Oral Three Times A Day 10 Days starting 07/05/16 07/11/16 Atorvastatin Calcium (Lipitor) 10 Mg Tablet 10 Mg Oral Bedtime Benztropine Mesylate 0.5 Mg Tablet 0.5 Mg Oral Twice A Day Divalproex Sodium (Divalproex Sodium Er) 250 Mg Tab.er.24h 250 Mg Oral Bedtime take with 1500 mg to equal 1750 mg daily 12/15/15 Divalproex Sodium (Divalproex Sodium Er) 500 Mg Tab.er.24h 1,500 Mg Oral Bedtime take with 250 mg to equal 1750 mg daily 10/14/15 Duloxetine Hcl 30 Mg Capsule.dr 30 Mg Oral Daily take with 60 mg to equal 90 mg daily 10/14/15 Duloxetine Hcl 60 Mg Capsule.dr 60 Mg Oral Daily take with 30 mg to equal 90 mg daily 10/14/15 Esomeprazole Magnesium (Nexium) 40 Mg Capsule.dr 40 Mg Oral Daily 12/15/15 Fenofibrate 160 Mg Tablet 160 Mg Oral Daily 12/15/15 Hydrocortisone Acetate (Hydrocortisone) 28 Gm Oint...g. 1 Applic Topically Twice A Day as needed for Prn Orders 12/15/15 Infliximab (Remicade) 100 Mg/Vial Vial Unknown Dose Intraven Q6w 04/10/14 Lactulose 10 Gm/15 Ml Solution 10 G Oral Twice A Day 12/15/15 Meloxicam 7.5 Mg Tablet 7.5 Mg Oral Twice A Day as needed for Pain 07/03/16 Metoclopramide Hcl 10 Mg Tablet 10 Mg Oral Daily as needed for Heartburn 12/15/15 Metoprolol Succinate 50 Mg Tab.sr.24h 50 Mg Oral Daily 12/20/11 Tramadol Hcl (Ultram) 50 Mg Tablet 50 Mg Oral Four Times Daily as needed for Pain 04/10/14 Ziprasidone Hcl 80 Mg Capsule 80 Mg Oral Twice A Day 10/14/15 Past Home Medications Medication Directions Ordered Status Adalimumab (Humira) 40 Mg/0.8 Ml/Kit Pen.ij.kit, 40 Mg Sub-Q Twice A Month Discontinued Atorvastatin Calcium (Lipitor) 10 Mg Tablet, 10 Mg Oral Daily 12/20/11 Discontinued Atorvastatin Calcium (Lipitor) 10 Mg Tablet, 1 Tab Oral Daily 12/09/09 Discontinued Benztropine Mesylate 0.5 Mg Tablet, 0.5 Mg Oral Bedtime 08/04/15 Discontinued Bystolic , 12/09/09 Discontinued Dextromethorphan Hbr (Dexalone) 30 Mg Capsule, 1 Cap Oral Daily 12/09/09 Discontinued Diphenhydramine Hcl (Benadryl) 25 Mg Capsule, 12.5 Mg Oral Three Times A Day 12/20/11 Discontinued Divalproex Sodium (Divalproex Sodium Er) 500 Mg Tab.er.24h, 1500 Mg Oral Bedtime 08/04/15 Discontinued Divalproex Sodium (Depakote) 500 Mg Tablet.dr 1000 Mg Oral Bedtime 12/20/11 Discontinued Divalproex Sodium (Depakote Er) 250 Mg Tab.sr.24h, 250 Mg Oral Daily Discontinued Doxycycline Hyclate 100 Mg Capsule, 100 Mg Oral Daily 06/15/08 Discontinued Duloxetine Hcl (Cymbalta) 60 Mg Capsule.dr 60 Mg Oral Am 12/09/09 Discontinued Duloxetine Hcl 30 Mg Capsule., 1 Cap Oral Daily 08/05/15 Discontinued Esomeprazole Mag Trihydrate (Nexium) 20 Mg Capsule.dr, Daily 12/09/09 Discontinued Esomeprazole Mag Trihydrate (Nexium) 20 Mg Capsule., 1 Cap Oral Daily 04/11 Discontinued Esomeprazole Magnesium (Nexium) 40 Mg Capsule., 40 Mg Oral Am 04/27/14 Discontinued Fenofibrate 160 Mg Tablet, 160 Mg Oral Am 08/04/15 Discontinued Gabapentin (Neurontin) 400 Mg Capsule, 400 Mg Oral Twice A Day 12/20/11 Discontinued Gabapentin (Neurontin) 600 Mg Tablet, 1 Tab Oral Twice A Day 12/09/09 Discontinued Hydrocodone Bit/Acetaminophen (Lortab 5) 1 Tab Tablet, 1 Tab Oral Tid Prn 05/19 Discontinued Metoclopramide Hcl 10 Mg Tablet, 10 Mg Oral Daily as needed for Gerd Discontinued Metoprolol , 12/09/09 Discontinued Paliperidone Palmitate (Invega Sustenna) 156 Mg/1 Ml Disp.syrin, 156 Mg Intramusc Monthly 12/20/11 Discontinued Risperidone (Risperdal) 2 Mg Tablet, 1 Mg Oral Bedtime 12/20/11 Discontinued Saphris , 1 Tab Oral Daily 12/09/09 Discontinued Sertraline Hcl (Zoloft) 100 Mg Tablet, 1.5 Tab Oral Daily 04/11/08 Discontinued Trazodone Hcl 150 Mg Tablet, 150 Mg Oral Bedtime 06/15/08 Discontinued Ziprasidone Hcl 80 Mg Capsule, 80 Mg Oral Twice A Day 04/06/12 Discontinued Ziprasidone Hcl (Geodon) 80 Mg Capsule, 80 Mg Oral Twice A Day 12/09/09 Discontinued Social History Social History Problem Response Recorded Date/Time Onset Date Status Chewing Tobacco Status No 06/15/2013 4:55am Not Applicable Not Applicable Hx Substance Use N HX OF SUBSTANCE ABUSE/MARIJUANA 07/11/2016 7:32pm Not Applicable Not Applicable Hx Alcohol Use No 07/11/2016 7:32pm Not Applicable Not Applicable Has the pt used tobacco in the last 12 months Yes 03/19/2016 6:36am Not Applicable Not Applicable Tobacco Usage smoke 10/14/2015 4:01pm Not Applicable Not Applicable Query Response Start Date Stop Date Smoking Status Current every day smoker Hospital Discharge Instructions No hospital discharge instructions. Plan of Care Discharge Date 07/11/16 7:50pm Disposition 01 DISCHARGED HOME, SELF-CARE Condition at Discharge Improved Instructions/Education Provided Medical Clearance for Psychiatric Care (ED) Prescriptions See Medication Section Referrals RIVERA SELBY Order Date: 1 Week Address: [address] [place] [id number] Note: RITIKA WILLINGHAM MD Address: [address] [place] [address] [place] [phone] Note: Additional Instructions/Education We have evaluated you for suicidal or self- harm behaviors or thoughts. We did not find any at this time. We recommend that you work with your corrections caseworker and therapist on ways to de-escalate conflict to avoid similar situations in the future. Call your corrections caseworker tomorrow. Follow up with your doctor and therapist next week. Care Plan and Goals Physician Care Plan Problem: Anger Goal: Follow up with primary care provider Instructions: Take medications and follow care plan as discussed/written Functional Status No functional status results. Allergies, Adverse Reactions, Alerts Allergen Type Severity Reaction Status Last Updated Haloperidol Allergy Severe SEIZURE Active 07/11/16 Trazodone Allergy Unknown PRIAPRISM Active 07/11/16 Immunizations Query Response on File Recorded Date/Time Hx Influenza Vaccination Y 201103/19/16 6:36am Hx Pneumococcal Vaccination No 03/19/16 6:36am Hx Tetanus, Diptheria, Pertussis No 05/12/14 12:15am Hx Influenza Vaccination Y 201103/19/16 6:36am Hx Tetanus Diptheria No 05/12/14 12:15am Hx Tetanus, Diptheria, Pertussis No 05/12/14 12:15am Hx Tetanus Toxoid Vaccination No 05/06/14 5:16pm Influenza Vaccine Hx 04/201607/11/16 7:32pm Vital Signs Acute Vital Signs Vital Response Date/Time Temperature (Fahrenheit) 97.8 deg F (96.8 - 99.1) 07/11/2016 7:50pm Temperature (Calculated Celsius) 36.15450 degrees C (36.0 - 37.3) 07/11/2016 7:50pm Pulse Rate (adult) 94 bpm (60 - 100) 07/11/2016 7:50pm Respiratory Rate 20 breaths/min (10 - 20) 07/11/2016 7:50pm O2 Sat by Pulse Oximetry 96 % (90 - 100) 07/11/2016 7:50pm Blood Pressure 130/89 mm Hg 07/11/2016 7:50pm Height (Feet) 5 feet 07/11/2016 7:08pm Height (Inches) 11.00 inches 07/11/2016 7:08pm Weight (Kilograms) 112.100 kg 07/11/2016 7:08pm Body Mass Index (BMI) 34.0 07/11/2016 7:08pm Results Laboratory Results Test Name Result Units Flags Reference Collection Date/Time Result Date/ Time Comments Neutrophils % (Manual) 77.0 % H 33-66 07/03/2016 3:01pm 07/03/2016 3: 26pm Band Neutrophils % 5.0 % D 0-6 07/03/2016 3:01pm 07/03/2016 3:26pm Lymphocytes % (Manual) 13.0 % L 23-45 07/03/2016 3:01pm 07/03/2016 3: 26pm Monocytes % (Manual) 3.0 % 0-9.0 07/03/2016 3:01pm 07/03/2016 3:26pm Eosinophils % (Manual) 1.0 % 0-4 07/03/2016 3:01pm 07/03/2016 3:26pm Basophils % (Manual) 1.0 % 0-2 07/03/2016 3:01pm 07/03/2016 3:26pm Band Neutrophils # 0.9 T/MM3 07/03/2016 3:01pm 07/03/2016 3:26pm Absolute Neutrophils (Manual) 14.4 T/MM3 H 1.8-7.7 07/03/2016 3:01pm 3:26pm Lymphocytes # (Manual) 2.4 T/MM3 1-4.8 07/03/2016 3:01pm 07/03/2016 3: 26pm Monocytes # (Manual) 0.6 T/MM3 0-0.8 07/03/2016 3:01pm 07/03/2016 3: 26pm Eosinophils # (Manual) 0.2 T/MM3 0-0.5 07/03/2016 3:01pm 07/03/2016 3: 26pm Basophils # (Manual) 0.2 T/MM3 0-0.2 07/03/2016 3:01pm 07/03/2016 3: 26pm Red Cell Morphology Comment NORMAL 07/03/2016 3:01pm 07/03/2016 3: 26pm White Blood Count 13.7 T/MM3 H 4.5-11.0 07/05/2016 5:14pm 07/05/2016 5: 20pm Red Blood Count 4.37 M/MM3 L 4.50-5.90 07/05/2016 5:14pm 07/05/2016 5: 20pm Hemoglobin 12.8 GM/DL L 13.5-17.5 07/05/2016 5:14pm 07/05/2016 5:20pm Hematocrit 36.7 % L 41-53 07/05/2016 5:14pm 07/05/2016 5:20pm Mean Corpuscular Volume 84.0 UM3 80-100 07/05/2016 5:14pm 07/05/2016 5: 20pm Mean Corpuscular Hemoglobin 29.3 UUG 26-34 07/05/2016 5:2016 5:20pm Mean Corpuscular Hemoglobin Concent 34.9 GM/DL 31-37 07/05/2016 5:07/05/2016 5:20pm RDW Standard Deviation 39.2 FL 36.9-50.2 07/05/2016 5:1407/05/2016 5 :20pm Platelet Count 225 T/MM3 130-400 07/05/2016 5:07/05/2016 5:20pm Mean Platelet Volume 10.2 UM3 9.4-12.4 07/05/2016 5:1407/05/2016 5: 20pm Neutrophils (%) (Auto) 62.2 % 33-66 07/05/2016 5:07/05/2016 5: 20pm Lymphocytes (%) (Auto) 28.6 % 23-45 07/05/2016 5:07/05/2016 5: 20pm Monocytes (%) (Auto) 7.1 % 0-9.0 07/05/2016 5:07/05/2016 5:20pm Eosinophils (%) (Auto) 1.3 % 0-4 07/05/2016 5:07/05/2016 5:20pm Basophils (%) (Auto) 0.4 % 0-2 07/05/2016 5:07/05/2016 5:20pm Immature Granulocyte % (Auto) 0.4 % 0.0-0.5 07/05/2016 5:2016 5:20pm Absolute Neutrophils (auto) 8.5 T/MM3 H 1.8-7.7 07/05/2016 5:2016 5:20pm Absolute Lymphocytes (auto) 3.9 T/MM3 1-4.8 07/05/2016 5:142016 5:20pm Absolute Monocytes (auto) 1.0 T/MM3 H 0-0.8 07/05/2016 5:142016 5:20pm Absolute Eosinophils (auto) 0.2 T/MM3 0-0.5 07/05/2016 5:14pm 2016 5:20pm Absolute Basophils (auto) 0.1 T/MM3 0-0.2 07/05/2016 5:07/05/2016 5:20pm Absolute Immature Granulocyte (auto 0.05 T/MM3 H 0.00-0.03 07/05/2016 5: 07/05/2016 5:20pm Icterus Index < 2 0-7 07/05/2016 5:07/05/2016 5:32pm Chemistry Specimen Hemolysis < 15 0-25 07/05/2016 5:07/05/2016 5 :32pm 0-25: Specimen Exhibited No Hemolysis. Turbidity < 20 0-20 07/05/2016 5:07/05/2016 5:32pm Sodium Level 139 MEQ/L 134-144 07/05/2016 5:07/05/2016 5:32pm Potassium Level 3.3 MEQ/L L 3.6-5 07/05/2016 5:07/05/2016 5:32pm Chloride Level 97 MEQ/L L 98-107 07/05/2016 5:07/05/2016 5:32pm Carbon Dioxide Level 31 MEQ/L H 22-30 07/05/2016 5:07/05/2016 5: 32pm Anion Gap 11 MEQ/L 5-15 07/05/2016 5:07/05/2016 5:32pm Blood Urea Nitrogen 9.0 MG/DL 9-07/05/2016 5:07/05/2016 5:32pm Creatinine 0.8 MG/DL 0.8-1.5 07/05/2016 5:07/05/2016 5:32pm BUN/Creatinine Ratio 11 RATIO 6-07/05/2016 5:07/05/2016 5:32pm Glomerular Filtration Rate Calc 109 07/05/2016 5:07/05/2016 5: 32pm Glucose Level 117 MG/DL H 75-110 07/05/2016 5:07/05/2016 5:32pm Calculated Osmolality 268 MOSM/KG 261-280 07/05/2016 5:07/05/2016 5:32pm Calcium Level 9.6 MG/DL 8.4-10.2 07/05/2016 5:07/05/2016 5:32pm Total Bilirubin 0.40 MG/DL 0.20-1.30 07/05/2016 5:07/05/2016 5: 32pm Alkaline Phosphatase 49 U/L 38-126 07/05/2016 5:1407/05/2016 5:32pm Total Protein 6.9 G/DL 6.3-8.2 07/05/2016 5:1407/05/2016 5:32pm Albumin 3.8 G/DL 3.5-5.0 07/05/2016 5:07/05/2016 5:32pm Globulin 3.1 G/DL 2.4-3.6 07/05/2016 5:1407/05/2016 5:32pm Albumin/Globulin Ratio 1.2 RATIO 1.1-2.2 07/05/2016 5:07/05/2016 5 :32pm Aspartate Amino Transf (AST/SGOT) 33 U/L D 17-59 07/05/2016 5:142016 5:34pm Alanine Aminotransferase (ALT/SGPT) 41 U/L 21-72 07/05/2016 5: 5:32pm Acetaminophen Level < 10 UG/ML L 10-30 07/05/2016 5:07/05/2016 5: 32pm TOXIC <4 HR POST INGESTION: >150 MG/L; TOXIC <12 HR POST INGESTION: >50 MG/L Salicylates Level < 1.0 MG/DL L 2-20 07/05/2016 5:07/05/2016 5: 32pm Alcohol, Quantitative <10 MG/DL <10 07/05/2016 5:07/05/2016 5: 32pm Urine Collection Type CLEANCATCH-MIDSTREAM 07/05/2016 5:42pm 2016 5:50pm Urine Color YELLOW YELLOW 07/05/2016 5:42pm 07/05/2016 5:50pm Urine Turbidity CLEAR CLEAR 07/05/2016 5:42pm 07/05/2016 5:50pm Urine Specific [place] <=1.005 L 1.015-1.025 07/05/2016 5:42pm 2016 5:50pm Urine pH 6.5 5.0-8.0 07/05/2016 5:42pm 07/05/2016 5:50pm Urine Leukocyte Esterase NEGATIVE NEGATIVE 07/05/2016 5:42pm 2016 5:50pm Urine Nitrite NEGATIVE NEGATIVE 07/05/2016 5:42pm 07/05/2016 5:50pm Urine Protein NEGATIVE NEGATIVE 07/05/2016 5:42pm 07/05/2016 5:50pm Urine Glucose (UA) NEGATIVE NEGATIVE 07/05/2016 5:42pm 07/05/2016 5: 50pm Urine Ketones NEGATIVE NEGATIVE 07/05/2016 5:42pm 07/05/2016 5:50pm Urine Urobilinogen 1.0 EU/DL NORMAL 07/05/2016 5:42pm 07/05/2016 5: 50pm Urine Bilirubin NEGATIVE NEGATIVE 07/05/2016 5:42pm 07/05/2016 5: 50pm Urine Blood TRACE-INTACT A NEGATIVE 07/05/2016 5:42pm 07/05/2016 5: 50pm Urinalysis Comment MICROSCOPIC NOT IND. 07/05/2016 5:42pm 2016 5:50pm Procedures Procedure Status Date Provider(s) Routine venipuncture Completed 07/03/16 Ct head/brain w/o dye Completed 07/03/16 Chest x-ray 2vw frontal&latl Completed 07/03/16 Comprehen metabolic panel Completed 07/03/16 Complete cbc w/auto diff wbc Completed 07/03/16 Hydrate iv infusion add-on Completed 07/03/16 Ther/proph/diag inj iv push Completed 07/03/16 Tx/pro/dx inj new drug addon Completed 07/03/16 Tx/pro/dx inj new drug addon Completed 07/03/16 Emergency dept visit Completed 07/03/16 455188"INJECTION, PROCHLORPERAZINE, UP TO 10 MG" Completed 07/03/16 [id number]"INJECTION, HYDROMORPHONE, UP TO 4 MG" Completed 07/03/16 [id number]"INJECTION, DIPHENHYDRAMINE HCL, UP TO 50 MG" Completed 07/03/16 [id number]"INFUSION, NORMAL SALINE SOLUTION , 1000 CC" Completed 07/03/16 Routine venipuncture Completed 07/05/16 Ct head/brain w/o dye Completed 07/05/16 Comprehen metabolic panel Completed 07/05/16 Urinalysis auto w/o scope Completed 07/05/16 Complete cbc w/auto diff wbc Completed 07/05/16 Emergency dept visit Completed 07/05/16 [id number] ITEM OR SERVICE Completed 07/05/16 [id number] ITEM OR SERVICE Completed 07/05/16 DRUG TESTS, PRESUMPTIVE, ANY NUMBER OF PROCEDURES Completed 07/05/16 DRUG TESTS, PRESUMPTIVE, BY INSTRUMENTED CHEMISTRY ANALYZERS Completed DRUG TESTS, PRESUMPTIVE, BY INSTRUMENTED CHEMISTRY ANALYZERS Completed DRUG TESTS, PRESUMPTIVE, BY INSTRUMENTED CHEMISTRY ANALYZERS Completed Encounters Encounter Location Arrival/Admit Date Discharge/Depart Date Attending Provider Departed Emergency Room [facility] 07/11/16 6:39pm 07/11/16 7: 50pm SEPTEMBERJEANNIE DO Departed Emergency Room [facility] 07/05/16 4:27pm 07/05/16 8: 41pm LISA FUENTES MD Departed Emergency Room [facility] 07/03/16 2:30pm 07/03/16 4: 10pm FABIANO MUÑOZ DO Recent Diagnosis
--- OUTSIDE RECORDS SUMMARY | 2016-08-21 00:17 | XMS REPORT | Continuity of Care Document ---
Author Author [facility] Organization [facility] Address Unknown Phone Unavailable Care Team Providers Care Lang Path Therapist Name Role Phone PATRIZIA ONOFRE MD Primary Care Physician [phone] Insurance Providers Payer Name Policy Number Subscriber Name Relationship Medicare [id number] Pravin Melton 18 Self [facility] Plan [id number] Pravin Melton 18 Self Advance Directives Directive Response Recorded Date/Time Advanced Directives Type None 04/09/14 10:17pm Problems Medical Problems Problem Onset Date Status NON-TOXIC INGESTION Unknown Active Bronchitis Unknown Active Mild volume depletion Unknown Active Aggie Unknown Active Medications Medication Dose Route Sig [...] TWICE A DAY PRN PAIN 04/10/14 Active Social History Social History Problem Response Recorded Date/Time Smoking Status Current every day smoker 04/09/2014 10:30pm Chewing Tobacco Status No 06/15/2013 4:55am Hx Substance Use Y MARIJUANA 06/15/2013 4:55am Hx Alcohol Use No 04/09/2014 10:30pm Query Response Start Date Stop Date Smoking Status Current every day smoker Hospital Discharge Instructions No hospital discharge instructions. Plan of Care No plan of care. Functional Status Query Response Date Recorded Physical Hygiene Self April 09, 2014 10:30pm Disabilities None April 09, 2014 10:30pm Devices Used None April 09, 2014 10:30pm Dressing Self April 09, 2014 10:30pm Ambulation Self April 09, 2014 10:30pm Diet Self April 09, 2014 10:30pm Mental Status Alert April 10, 2014 12:23am Disabilities None April 09, 2014 10:30pm Devices Used None April 09, 2014 10:30pm Physical Hygiene Self April 09, 2014 10:30pm Dressing Self April 09, 2014 10:30pm Ambulation Self April 09, 2014 10:30pm Diet Self April 09, 2014 10:30pm Allergies, Adverse Reactions, Alerts Allergen Type Severity [...] Vital Signs Vital Response Date/Time Temperature (Fahrenheit) 97.1 deg F (96.8 - 99.1) Temperature (Calculated Celsius) 36.77246 degrees C (36.0 - 37.3) Pulse Rate (adult) 100 bpm (60 - 100) O2 Sat by Pulse Oximetry 95 % (90 - 100) Blood Pressure 134/64 mm Hg Height 5 ft 11 in Weight 259 lb Body Mass Index 36.0 kg/m^2 Results Test Source Date Result Interp. [...] 2008 6:00am Not Performed - Urine Specific [place] April 09, 2014 10:34pm 1.010 L - [...] Report April 10, 2014 3:42am REFERENCE LAB [id number] - EKG April 15, 2009 3:30am Complete [...] Streptococcus Culture Throat September 16, 2010 4:47am Procedures No known history of procedures. Encounters Encounter Location Date/Time Departed Emergency Room [facility] 04/09/14 10:17pm Recent Diagnosis
--- OUTSIDE RECORDS SUMMARY | 2016-08-21 00:18 | XMS REPORT | Continuity of Care Document ---
Author Author [facility] Organization [facility] Address Unknown Phone Unavailable Care Team Providers Care Balance Bridge Inspector Name Role Phone PATRIZIA ONOFRE MD Primary Care Physician [phone] Insurance Providers Payer Name Policy Number Subscriber Name Relationship Medicare [id number] Pravin Melton 18 Self [facility] Plan [id number] Pravin Melton 18 Self Advance Directives Directive Response Recorded Date/Time Ordered Resuscitation Status Full Code 04/13/14 10:32am Resuscitation Documents on File No 04/13/14 10:11am Problems Medical Problems Problem Onset Date Status [...] N HX OF SUBSTANCE ABUSE/MARIJUANA PER HX 04/27/2014 8:23am Hx Alcohol Use No 04/27/2014 8:23am Has the pt used tobacco in the last 12 months Yes 04/27/2014 8:23am Tobacco Usage smoke 04/09/2014 10:53pm Query Response Start Date Stop Date Smoking Status Current every day smoker Hospital Discharge Instructions No hospital discharge instructions. Plan of Care No plan of care. Functional Status Query Response Date Recorded Physical Hygiene Self April 09, 2014 10:30pm Physical Hygiene Self April 09, 2014 10:30pm Allergies, Adverse [...] Vital Signs Vital Response Date/Time Temperature (Fahrenheit) 97.5 deg F (96.8 - 99.1) Temperature (Calculated Celsius) 36.04762 degrees C (36.0 - 37.3) Temperature Source Temporal Pulse Rate (adult) 82 bpm (60 - 100) Respiratory Rate 15 breaths/min (10 - 20) O2 Sat by Pulse Oximetry 96 % (90 - 100) Oxygen Delivery Method Room Air Blood Pressure 129/64 mm Hg Blood Pressure Source Automatic Cuff Height 5 ft 11 in Weight 263 lb Body Mass Index 36.0 kg/m^2 Results [...] 2008 6:00am Not Performed - Urine Specific [place] April 09, 2014 10:34pm 1.010 L - [...] Report April 10, 2014 3:42am REFERENCE LAB [id number] - EKG April 15, 2009 3:30am Complete [...] Culture Throat September 16, 2010 4:47am Procedures Procedure Status Date [facility] 04/09/14 ASSAY OF SALICYLATE completed 04/09/14 URINALYSIS AUTO W/O SCOPE completed 04/09/14 ASSAY OF ACETAMINOPHEN completed 04/09/14 ASSAY OF ETHANOL completed 04/09/14 ASSAY THYROID STIM HORMONE completed 04/09/14 COMPLETE CBC W/AUTO DIFF WBC completed 04/09/14 HYDRATION IV INFUSION INIT completed 04/09/14 EMERGENCY DEPT VISIT completed 04/09/14 [id number] ITEM OR SERVICE completed 04/09/14 completed 04/09/14 [id number]"INFUSION, NORMAL SALINE SOLUTION , 1000 CC" completed 04/09/14 Esophagogastroduodenoscopy (EGD) with closed biopsy completed 04/28/14 FLOYD ARROYO MD, FACS, CWS Encounters Encounter Location Date/Time Departed Emergency Room [facility] 04/09/14 10:17pm
--- OUTSIDE RECORDS SUMMARY | 2016-08-21 00:19 | XMS REPORT | Referral Summary ---
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 Name Role Phone Julieta Smith Primary Care Physician [phone] Encounter Date(s): 07/01/16 - 07/01/16 [facility] [address] [place] [phone] Discharge Diagnosis: Obesity Discharge Diagnosis: Ankylosing spondylitis (disorder) Discharge Diagnosis: Abnormal blood sugar Discharge Diagnosis: Current smoker Discharge Diagnosis: Anxiety state (finding) Discharge Diagnosis: Essential hypertension (disorder) Discharge Diagnosis: GERD (gastroesophageal reflux disease) Discharge Diagnosis: Acne Discharge Diagnosis: Bipolar disorder (disorder) Discharge Diagnosis: Lower urinary tract symptoms (LUTS) Discharge Diagnosis: Generalized pruritus Discharge Disposition: 01-Home or Self Care Attending Physician: Julius Smith MD Admitting Physician: Julius Smith MD Vital Signs Most recent to 1 oldest [Reference Range]: Blood Pressure 140/80 mmHg [90-140/60-90 mmHg] (07/01/16 1:21 PM) Problem List Condition Effective Dates Status [...] q4hr, # 1 Each, 0 Refill(s), Pharmacy: [facility] Start Date: 08/16/15 Status: Ordered atorvastatin 10 mg oral tablet See Instructions, TAKE 1 TABLET BY MOUTH DAILY, # 28 tabs, 3 Refill(s), eRx: [facility] Start Date: 04/30/16 Status: Ordered benztropine 0.5 mg oral tablet 0.5 mg 1 tabs, Oral, Bedtime (once a day), from , # 30 tabs, 0 Refill(s), other reason (Rx) Start Date: 12/29/14 Status: Ordered Cymbalta 60 mg oral delayed release capsule 60 mg 1 caps, Oral, Daily, do not crush or chew, # 30 caps, 5 Refill(s), Pharmacy: [id number], 1 caps Oral Daily,Instr:do not crush or chew Start Date: 01/10/15 Status: Ordered divalproex sodium 500 mg oral tablet, extended release See Instructions, Takes 1750mg daily, 0 Refill(s) Start Date: 07/11/14 Status: Ordered DULoxetine 30 mg oral delayed release capsule 30 mg 1 caps, Oral, Daily, # 30 caps, 5 Refill(s), Pharmacy: [id number], 1 caps Oral Daily Start Date: 01/10/15 Status: Ordered fenofibrate 160 mg oral tablet See Instructions, TAKE 1 TABLET BY MOUTH EVERY DAY, # 28 tabs, 3 Refill(s), eRx : [facility] Start Date: 04/30/16 Status: Ordered Geodon 20 mg oral capsule See Instructions, 4 caps in am and 4 caps in pm, # 720 caps, 0 Refill(s), other reason (Rx) Start Date: 12/29/14 Status: Ordered hydrocortisone 1% topical cream See Instructions, APPLY TOPICALLY TO AFFECTED AREA TWICE A DAY, # 28.35 g, eRx: [facility] Start Date: 05/08/16 Status: Ordered Keflex 500 mg oral capsule 500 mg 1 caps, Oral, QID, X 5 days, # 20 caps, 0 Refill(s), Pharmacy: [facility], 1 caps Oral QID,x5 days Start Date: 07/01/16 Stop Date: 07/06/16 Status: Ordered lactulose 10 g/15 mL oral and rectal liquid See Instructions, TAKE 30 MLS BY MOUTH TWICE DAILY, # 1,800 mL, 1 Refill(s), Pharmacy: [facility], TAKE 30 MLS BY MOUTH TWICE DAILY Start Date: 03/28/16 Status: Ordered meloxicam 7.5 mg oral tablet 7.5 mg 1 tabs, Oral, BID, # 180 tabs, 1 Refill(s), Pharmacy: [facility], 1 tabs Oral BID Start Date: 07/01/16 Status: Ordered metoclopramide 10 mg oral tablet See Instructions, TAKE ONE TABLET BY MOUTH EVERY DAY NEEDED FOR GERD/ HEARTBURN, # 28 tabs, 3 Refill(s), eRx: [facility] Start Date: 04/30/16 Status: Ordered Metoprolol Succinate ER 50 mg oral tablet, extended release See Instructions, TAKE 1 TABLET BY MOUTH ONCE A DAY, # 28 tabs, 3 Refill(s), eRx : [facility] Start Date: 04/30/16 Status: Ordered NexIUM 40 mg oral delayed release capsule See Instructions, TAKE ONE CAPSULE BY MOUTH EVERY DAY FOR GERD, # 28 caps, 3 Refill(s), [facility]: [facility] Start Date: 04/30/16 Status: Ordered Remicade 100 mg intravenous injection See Instructions, 5 mg/kg IV q 6 weeks, # 1 Each, 0 Refill(s), Indication: M45.9 , other reason (Rx) Start Date: 02/13/16 Status: Ordered traMADol 50 mg oral tablet 50 mg 1 tabs, Oral, QID, as needed for pain, #120 MUST LAST 30 DAYS - QOL [phone] NOTE THE CHANGE IN QUANTITY, # 120 [...] narrowing of distal esophagus dilated to 54 Lao Social History Social History Type Response Smoking Status Current every day smoker; Type: Cigarettes; Tobacco use per day: More than 1 pack Assessment and Plan Extracted from: Title: Ambulatory Patient Education Author: Julius Smith MD Date: Allergy Allergies An allergy is an abnormal reaction to a substance by the body's defense system ( immune system). Allergies can develop at any age. WHAT CAUSES ALLERGIES? An allergic reaction happens when the immune system mistakenly reacts to a normally harmless substance, called an allergen, as if it were harmful. The immune system releases antibodies to fight the substance. Antibodies eventually release a chemical called histamine into the bloodstream. The release of histamine is meant to protect the body from infection, but it also causes discomfort. An allergic reaction can be triggered by: Eating an allergen. Inhaling an allergen. Touching an allergen. WHAT TYPES OF ALLERGIES ARE THERE? There are many types of allergies. Common types include: Seasonal allergies. People with this type of allergy are usually allergic to substances that are only present during certain seasons, such as molds and pollens. Food allergies. Drug allergies. Insect allergies. Animal dander allergies. WHAT ARE SYMPTOMS OF ALLERGIES? Possible allergy symptoms include: Swelling of the lips, face, tongue, mouth, or throat. Sneezing, coughing, or wheezing. Nasal congestion. Tingling in the mouth. Rash. Itching. Itchy, red, swollen areas of skin (hives). Watery eyes. Vomiting. Diarrhea. Dizziness. Lightheadedness. Fainting. Trouble breathing or swallowing. Chest tightness. Rapid heartbeat. HOW ARE ALLERGIES DIAGNOSED? Allergies are diagnosed with a medical and family history and one or more of the following: Skin tests. Blood tests. A food diary. A food diary is a record of all the foods and drinks you have in a day and of all the symptoms you experience. The results of an elimination diet. An elimination diet involves eliminating foods from your diet and then adding them back in one by one to find out if a certain food causes an allergic reaction. HOW ARE ALLERGIES TREATED? There is no cure for allergies, but allergic reactions can be treated with medicine. Severe reactions usually need to be treated at a hospital. HOW CAN REACTIONS BE PREVENTED? The best way to prevent an allergic reaction is by avoiding the substance you are allergic to. Allergy shots and medicines can also help prevent reactions in some cases. People with severe allergic reactions may be able to prevent a life- threatening reaction called anaphylaxis with a medicine given right after exposure to the allergen. This information is not intended to replace advice given to you by your health care provider. Make sure you discuss any questions you have with your health care provider. Document Released: 07/22/2003 Document Revised: 05/19/2015 Document Reviewed: [employer] Interactive Patient Education 2016 [employer] No follow up information was provided. Extracted from: Title: Office Visit Note Author: Julius Smith MD Date: 07/01/16 Assessment/Plan Abnormal blood sugar This issue was reviewed, appears stable, and current therapy continued except as mentioned. Appropriate lab was reviewed from the most recent appropriate entry and lab was ordered if needed in the cpoe/nursing orders, and follow up recommended generally in 90 days and no later then six months. Lab pending. Acne Keflex 500mg po qid for five days. Call report. Side effects of rheumatology meds? Ankylosing spondylitis (disorder) This issue was reviewed, appears stable, and current therapy continued except as mentioned. Appropriate lab was reviewed from the most recent appropriate entry and lab was ordered if needed in the cpoe/nursing orders, and follow up recommended generally in 90 days and no later then six months. Seeing Rheumatology. Due for next injection. IMPRESSION 1. Ankylosing spondylitis (chronic lower back pain, HLA-B27+ve, bridging osteophytes on x-rays) 2. High-risk medication therapy, Remicade (restarted 02/2015) QuantiFERON Gold -ve (02/2016) 3. Noncompliance with medication 4. Pilonidal sinus in the right axilla, no acute inflammation PLAN 1. We will restart Remicade 5 mg/kilogram every 6 weeks. 2. Discussed about increased risk of serious infections with Remicade. Instructed to notify if he develops fever, chills, upper respiratory/urinary tract infection. 3. Follow-up with Dr. Smith regarding pilonidal sinus 4. CBC, chemistry panel, ESR and CRP are reviewed 5. Follow-up in 3 months, sooner if needed Patient has expressed understanding of the plan. [1] Anxiety state (finding) We discussed several options for treatment for this condition. The patient declined any changes or other treatments at this time. Seeing PV and they do not want him on more psych medication at this time. Non-medicinal treatments discussed. Bipolar disorder (disorder) This issue was reviewed, appears stable, and current therapy continued except as mentioned. Appropriate lab was reviewed from the most recent appropriate entry and lab was ordered if needed in the cpoe/nursing orders, and follow up recommended generally in 90 days and no later then six months. Seeing PV. Current smoker Smoking Cessation was discussed. The patient is welcome to f/u for therapy or medication for smoking cessation at any time that they are willing to quit. Essential hypertension (disorder) This issue was reviewed, appears stable, and current therapy continued except as mentioned. Appropriate lab was reviewed from the most recent appropriate entry and lab was ordered if needed in the cpoe/nursing orders, and follow up recommended generally in 90 days and no later then six months. The patient reports their blood pressure has been stable at home and is not having any significant or related problems. There has been no chest pain, chest pressure, soa/becerril. The patient had an elevated blood pressure reading and is to monitor their bp and call with a report if consistently > 140/90. Ordered: TSH with Reflex Free T4 Generalized pruritus This issue was reviewed, appears stable, and current therapy continued except as mentioned. Appropriate lab was reviewed from the most recent appropriate entry and lab was ordered if needed in the cpoe/nursing orders, and follow up recommended generally in 90 days and no later then six months. GERD (gastroesophageal reflux disease) This issue was reviewed, appears stable, and current therapy continued except as mentioned. Appropriate lab was reviewed from the most recent appropriate entry and lab was ordered if needed in the cpoe/nursing orders, and follow up recommended generally in 90 days and no later then six months. Lower urinary tract symptoms (LUTS) Lab and UA pending. Consider consult when interested. Ordered: Prostate Specific Antigen Urinalysis with Culture if Indicated Obesity Diet and exercise as tolerated and feasible. Consider medication when interested.
--- NOTE | 2016-08-21 00:24 | ERPDOC ---
Departure Disposition Decision Date: Aug 21, 2016 Disposition Decision Time: :07 Disposition: 01 DISCHARGED HOME, SELF-CARE Impression Impression Impression: Primary Impression: Bipolar affective Active/Remission status: currently active Current bipolar episode type: mixed Psychotic features: with psychotic features Severity: Severe Condition: Improved Seen By: Physician only Referrals: RITIKA WILLINGHAM MD (Family) Problems/Meds/Labs Reviewed?: Yes Medications reviewed and manag: Yes Additional Instructions: Take your routine medications as prescribed See [place] tomorrow if your symptoms worsen. Follow up care ordered?: Yes Mental Status: Alert HPI - Psychosocial General Chief Complaint: Psychiatric Problems Stated Complaint: SUICIDAL IDEATION Time Seen by MD: 00:12 Source: patient Exam Limitations: no limitations HPI - Psychosocial Initial Comments Pt has been having racing thoughts, flight of ideas and significant stress all night. Patient is fearful that he may try to harm himself later. Patient has no specific plan, but if he were going to harm himself he said he would take all of his medicines. In discussing the details with the patient, exclusive the patient has flight of ideas, pressured thought, and feels very disjointed in his thinking currently. She does not really have suicidal ideation, does not want to harm himself or be harmed, Patient feels that if he could just organize his thoughts and settle down for the night he would probably be okay at home. Occurred At: home Onset: Gradual Duration: 6-12 hrs Severity: moderate Associated Symptoms: anxiety, impaired concentration, suicidal ideation Allergies: Coded Allergies: haloperidol (Verified Allergy, Severe, SEIZURE, 07/11/16) trazodone (Verified Allergy, Unknown, PRIAPRISM, 07/11/16) Past History Patient Surgical History 1. right total hip arthroplasty Past Medical History Metabolic: hypercholesterolemia, hypertension ENMT: allergies GI: GERD, ulcers Male: kidney stones Neurological: head injury, other Musculoskeletal: back pain, osteoarthritis, other Psychological: alcohol abuse, anxiety, bipolar, depression, drug abuse, other, personality disorder, suicide attempt Surgical History General: EGD Joint: hip Family History Family PMH: FOUND: [place], alcohol abuse, diabetes, hypertension Vaccines Hx Influenza Vaccination: Yes (2011) Hx Pneumococcal Vaccination: No Hx Tetanus Diptheria: No Hx Tetanus, Diptheria, Pertuss: No Social History # of Packs/Tins per Day: 1.5 Substance Use Type: does not use Alcohol Intake: none Review of Systems Constitutional Constitutional: DENIES: appetite decrease, appetite increase, chills, dizziness , fever, weakness ENMT Ears: DENIES: pain Hearing: DENIES: hearing loss, tinnitus Balance: DENIES: vertigo Mouth/Throat: DENIES: change in swallowing, change in voice, hoarsness, painful swallowing, sore throat Cardiovascular Cardiac: DENIES: chest pain, dyspnea on exertion Rhythm/Rate: DENIES: irregular beat, palpitations, tachycardia Vascular: DENIES: pedal edema Pulmonary Respiratory: DENIES: cough, dyspnea, pleuritic chest pain GI Upper Abdomen: DENIES: dysphagia, heartburn/indigestion, nausea, pain, vomiting Lower Abdomen: DENIES: blood in stool, constipation, diarrhea, pain General: DENIES: burning, dysuria, frequency, pain, urgency Musculoskeletal General: DENIES: cramps, joint pain, joint swelling, pain, weakness Integumentary Skin: DENIES: rash, sores Neurological General: DENIES: headache, numbness, tingling, vertigo, weakness Psychiatric Psychiatric: anxiety, depression, nervousness Physical Exam General General Nourishment: well nourished, well developed, appears stated age, no acute distress General Body Habitus: well groomed Vitals and Pain First Documented Vital Signs Date Time Temp Pulse Resp B/P Pulse Ox O2 Delivery O2 Flow Rate FiO2 08/21/16 00:10 98.4 106 24 162/90 96 Room Air Weight: Kilograms: Height (feet): 5 Height (inches): 11.00 Triage Pain Scale: RN VS reviewed by Provider: Yes Normal Exams: Head: Normocephalic w/o trauma Eyes: Pupils are PERRLA w/ EOMI, No scleral icterus, irritation, or foreign bodies noted ENMT: No facial trauma, nasal exudates, pharyngeal erythema, or exudates are noted Neck: Full range of motion, without adenopathy, JVD, bruits or thyromegaly Chest/Resp: Clear all christy, with good airflow, and symmetry bilaterally CV: Regular rate and rhythm, without murmur or gallop, Pulses 2+ all extremities, capillary refill, <2 seconds all ext., no pedal edema noted Abdomen: Bowel sounds positive, soft, non-tender, non-distended, no hepatosplenomegaly, masses or bruits noted Lymphatic: No lymphadenopathy, or lymphedema noted Musculoskeletal: No tenderness, or deformity noted, good range of motion, all extremities Integumentary: No rashes, hives, or bruising noted, hair and nails, without abnormality Neurologic: Patient is alert, and oriented, cranial nerves, motor/sensory/ cerebellar, exams w/o gross deficits, to observation Psychiatric (brief) Psychiatric Brief: FOUND: alert, oriented, NOT FOUND: normal affect (flight of ideas, accelerated thoughts, disorganized thinking and anxiety) Progress Results/Orders Orders Procedure Category Date Status Time Cbc W/Auto LAB 08/21/16 Complete Diff-Reflex Manual 00:17 Cmp - Comprehensive LAB 08/21/16 In Process Metabolic 00:17 Ethanol LAB 08/21/16 In Process 00:17 Drug Screen LAB 08/21/16 Complete Urine-Test At [facility] 00:17 Acetaminophen LAB 08/21/16 In Process 00:17 Salicylate LAB 08/21/16 In Process 00:17 Tsh - Thyroid Stim LAB 08/21/16 In Process Hormone 00:17 Olanzapine (Zyprexa) PHA 08/21/16 Complete 00:30 UA, LAB 08/21/16 Complete Dip&Micro(Complete) & 00:37 Lab Results Laboratory Tests Test 08/21/16 00:28 08/21/16 00:37 White Blood Count 11.3T/MM3 Red Blood Count 4.70M/MM3 Hemoglobin 14.0GM/DL Hematocrit 39.4% Mean Corpuscular Volume 83.8UM3 Mean Corpuscular Hemoglobin 29.8UUG Mean Corpuscular Hemoglobin Concent 35.5GM/DL RDW Standard Deviation 39.2FL Platelet Count 270T/MM3 Mean Platelet Volume 9.8UM3 Immature Granulocyte % (Auto) 0.3% Neutrophils (%) (Auto) 58.7% Lymphocytes (%) (Auto) 31.3% Monocytes (%) (Auto) 7.3% Eosinophils (%) (Auto) 1.7% Basophils (%) (Auto) 0.7% Absolute Immature Granulocyte (auto 0.03T/MM3 Absolute Neutrophils (auto) 6.6T/MM3 Absolute Lymphocytes (auto) 3.5T/MM3 Absolute Monocytes (auto) 0.8T/MM3 Absolute Eosinophils (auto) 0.2T/MM3 Absolute Basophils (auto) 0.1T/MM3 Turbidity < 20 Sodium Level 141MEQ/L Potassium Level 3.6MEQ/L Chloride Level 98MEQ/L Carbon Dioxide Level 27MEQ/L Anion Gap 16MEQ/L Blood Urea Nitrogen 5.0MG/DL Creatinine 0.7MG/DL Glomerular Filtration Rate Calc 128 BUN/Creatinine Ratio 7RATIO Glucose Level 121MG/DL Calculated Osmolality 269MOSM/KG Calcium Level 10.0MG/DL Total Bilirubin 0.80MG/DL Icterus Index < 2 Aspartate Amino Transf (AST/SGOT) 31U/L Alanine Aminotransferase (ALT/SGPT) 43U/L Alkaline Phosphatase 55U/L Total Protein 7.3G/DL Albumin 4.4G/DL Globulin 2.9G/DL Albumin/Globulin Ratio 1.5RATIO Thyroid Stimulating Hormone (TSH) Pending Chemistry Specimen Hemolysis < 15 Salicylates Level < 1.0MG/DL Acetaminophen Level < 10UG/ML Alcohol, Quantitative <10MG/DL Urine Collection Type Cleancatch-midstream Urine Color Yellow Urine Turbidity Clear Urine pH 7.0 Urine Specific [place] 1.020 Urine Protein Trace Urine Glucose (UA) Negative Urine Ketones Negative Urine Blood 1+ Urine Nitrite Negative Urine Bilirubin Negative Urine Urobilinogen 0.2EU/DL Urine Leukocyte Esterase Negative Urine RBC 1-3/HPF Urine WBC None seen/HPF Urine Bacteria None seen Urine Mucus Present Urine Culture Indicated Cult not indicated Urine Opiates Screen NegativeNG/ML Urine Oxycodone Screen NegativeNG/ML Urine Methadone Screen NegativeNG/ML Urine Propoxyphene Screen NegativeNG/ML Urine Barbiturates Screen NegativeNG/ML Urine Tricyclic Antidepressants NegativeNG/ML Urine Phencyclidine Screen NegativeNG/ML Urine Amphetamines Screen NegativeNG/ML Urine Methamphetamines Screen NegativeNG/ML Urine Benzodiazepines Screen NegativeNG/ML Urine Cocaine Screen NegativeNG/ML Urine Cannabinoids Screen NegativeNG/ML Medications Current ED Medications Olanzapine (Zyprexa) 10 mg O ONCE IM ; Start 08/21/16 at 00:30; Stop 08/21/16 at 00:31; Status DC Progress Progress Screening lab is obtained - all normal Patient given Zyprexa 10 mg IM - to relief PRAVIN DUONG MD Aug 21, 2016 00:23
[2016-08-21] MEDS ORDERED: OLANZAPINE 10 MG/VIAL INJECTION IM ONE (00:30)
[2016-08-21 00:44] LABS: BASOPHILS # (AUTO) 0.1 T/MM3 (0-0.2); BASOPHILS % (AUTO) 0.7 % (0-2); EOSINOPHILS # (AUTO) 0.2 T/MM3 (0-0.5); EOSINOPHILS % (AUTO) 1.7 % (0-4); HCT - HEMATOCRIT 39.4 % (41-53); IMMATURE GRANULOCYTE # (AUTO) 0.03 T/MM3 (0.00-0.03); IMMATURE GRANULOCYTE % (AUTO) 0.3 % (0.0-0.5); LYMPHOCYTES # (AUTO) 3.5 T/MM3 (1-4.8); LYMPHOCYTES % (AUTO) 31.3 % (23-45); MEAN CORPUSCULAR HGB 29.8 UUG (26-34); MEAN CORPUSCULAR HGB CONC(MCHC 35.5 GM/DL (31-37); MEAN CORPUSCULAR VOLUME 83.8 UM3 (80-100); MEAN PLATELET VOLUME 9.8 UM3 (9.4-12.4); MONOCYTES # (AUTO) 0.8 T/MM3 (0-0.8); MONOCYTES % (AUTO) 7.3 % (0-9.0); NEUTROPHILS #(AUTO)-ABSOLUTE 6.6 T/MM3 (1.8-7.7); NEUTROPHILS % (AUTO) 58.7 % (33-66); WBC - WHITE BLOOD COUNT 11.3 T/MM3 (4.5-11.0)
[2016-08-21 00:50] LABS: BLOOD, URINE 1+ (NEGATIVE); COLOR,URINE YELLOW (YELLOW); LEUKOCYTE ESTERASE ,URINE NEGATIVE (NEGATIVE); NITRITE,URINE NEGATIVE (NEGATIVE); UROBILINOGEN,URINE 0.2 EU/DL (NORMAL)
[2016-08-21 00:53] LABS: ACETAMINOPHEN < 10 UG/ML (10-30); ALBUMIN 4.4 G/DL (3.5-5.0); ALBUMIN/GLOBULIN RATIO 1.5 RATIO (1.1-2.2); ALKALINE PHOSPHATASE 55 U/L (38-126); ALT (SGPT) 43 U/L (21-72); ANION GAP 16 MEQ/L (5-15); AST (SGOT) 31 U/L (17-59); BUN/CREATININE RATIO 7 RATIO (6-26); CHLORIDE 98 MEQ/L (98-107); CO2 - CARBON DIOXIDE 27 MEQ/L (22-30); CREATININE 0.7 MG/DL (0.8-1.5); ETHANOL <10 MG/DL (<10); GLOMERULAR FILTRATION RATE 128; GLUCOSE 121 MG/DL (75-110); POTASSIUM 3.6 MEQ/L (3.6-5); SALICYLATE < 1.0 MG/DL (2-20); SODIUM 141 MEQ/L (134-144); TOTAL PROTEIN 7.3 G/DL (6.3-8.2)
[2016-08-21 00:56] LABS: AMPHETAMINE SCREEN,URINE NEGATIVE; BARBITURATE SCREEN,URINE NEGATIVE; BENZODIAZEPINES SCREEN,URINE NEGATIVE; CANNABINOID SCREEN,URINE NEGATIVE; COCAINE SCREEN,URINE NEGATIVE; METHADONE SCREEN, URINE NEGATIVE; METHAMPHETAMINE SCREEN, URINE NEGATIVE; OPIATE SCREEN,URINE NEGATIVE; PHENCYCLIDINE SCREEN,URINE NEGATIVE; TRICYCLIC ANTIDEPRESSANT,URINE NEGATIVE
[2016-08-21 01:05] LABS: BACTERIA,URINE NONE SEEN (NEGATIVE); MUCUS,URINE PRESENT; WBC,URINE NONE SEEN /HPF (0-5)
[2016-08-21 01:15] VITALS: BP 143/86; PULSE 94; RESP 19; TEMP 98.4; O2SAT 97
--- OUTSIDE RECORDS SUMMARY | 2016-08-21 01:36 | XMS REPORT | Continuity of Care Document ---
Author Author [facility] Organization [facility] Address Unknown Phone Unavailable Allergies Active Description Code Type Severity Reaction Onset Reported/Identified Relationship to Patient Clinical Status Yes NO NAME AVAILABLE 63738 DRUG N/A N/A Yes haloperidol NKMA N/A allergy 09/08/2013 Yes traZODone NKMA Medium allergy Adverse Reaction 09/08/2013 Yes HALOPERIDOL 47770 DRUG INGREDI High Anaphylaxis 07/05/2016 07/05/2016 Yes TRAZODONE 27876 DRUG INGREDI N/A Other 07/05/2016 07/05/2016 Medications [...] Status Pt. Type Provider Facility Loc./Unit Complaint [id number] 06/22/2013 10:19:00 06/22/2013 23 :59:59 CLS Outpatient
--- OUTSIDE RECORDS SUMMARY | 2016-08-21 01:37 | XMS REPORT | Continuity of Care Document ---
Author Author [facility] Organization [facility] Address Unknown Phone Unavailable Care Team Providers Care Adventure Therapist Name Role Phone PATRIZIA ONOFRE MD Primary Care Physician [phone] Insurance Providers Payer Name Policy Number Subscriber Name Relationship Medicare [id number] Pravin Melton 18 Self Mj Eko Plan [id number] Pravin Melton 18 Self Problems Medical Problems [...] F (96.8 - 99.1) Temperature (Calculated Celsius) 36.99173 degrees C (36.0 - 37.3) Pulse Rate [...] 2008 6:00am Not Performed - Urine Specific [place] April 09, 2014 10:34pm 1.010 L - [...] Report April 10, 2014 3:42am REFERENCE LAB [id number] - EKG April 15, 2009 3:30am Complete [...] completed 04/09/14 EMERGENCY DEPT VISIT completed 04/09/14 [id number] ITEM OR SERVICE completed 04/09/14 completed 04/09/14 [id number]"INFUSION, NORMAL SALINE SOLUTION , 1000 CC" completed 04/09/14 EGD BIOPSY SINGLE/MULTIPLE completed 04/28/14 FLOYD ARROYO MD, FACS, CWS ESOPH EGD DILATION <30 MM completed 04/28/14 FLOYD ARROYO MD, FACS, CWS CULTURE SCREEN ONLY completed 04/28/14 TISSUE EXAM BY PATHOLOGIST completed 04/28/14 SPECIAL STAINS GROUP 1 completed 04/28/14 [id number]"RINGERS LACTATE INFUSION, UP TO 1000 CC" completed 04/28/14 Encounters Encounter Location Date/Time Departed Emergency Room [facility] 05/06/14 4:42pm Departed Emergency Room [facility] 04/09/14 10:17pm Recent Diagnosis
--- OUTSIDE RECORDS SUMMARY | 2016-08-21 01:37 | XMS REPORT | Continuity of Care Document ---
Author Author [facility] Organization [facility] Address Unknown Phone Unavailable Care Team Providers Care Spud Driller Name Role Phone PATRIZIA ONOFRE MD Primary Care Physician [phone] Insurance Providers Payer Name Policy Number Subscriber Name Relationship Medicare [id number] Pravin Melton 18 Self Mj Z[employer] Plan [id number] Pravin Melton 18 Self Problems Medical Problems [...] F (96.8 - 99.1) Temperature (Calculated Celsius) 36.24359 degrees C (36.0 - 37.3) Pulse Rate [...] 2008 6:00am Not Performed - Urine Specific [place] [address] April 09, 2014 10:34pm 1.010 L - [...] Report April 10, 2014 3:42am REFERENCE LAB [id number] - EKG April 15, 2009 3:30am Complete [...] 2014 8:34am Name: PRAVIN MELTON Unit #: [id number] : 1980 Sex: M Loc / Svc: ED DOS: 05/06/14 Signed Report #: [id number] DIAGNOSTIC IMAGING REPORT TYPE OF EXAM: FOOT [...] completed 04/09/14 EMERGENCY DEPT VISIT completed 04/09/14 [id number] ITEM OR SERVICE completed 04/09/14 completed 04/09/14 [id number]"INFUSION, NORMAL SALINE SOLUTION , 1000 CC" completed 04/09/14 EGD BIOPSY SINGLE/MULTIPLE completed 04/28/14 FLOYD ARROYO MD, FACS, CWS ESOPH EGD DILATION <30 MM completed 04/28/14 FLOYD ARROYO MD, FACS, CWS CULTURE SCREEN ONLY completed 04/28/14 TISSUE EXAM BY PATHOLOGIST completed 04/28/14 SPECIAL STAINS GROUP 1 completed 04/28/14 [id number]"RINGERS LACTATE INFUSION, UP TO 1000 CC" completed 04/28/14 Encounters Encounter Location Date/Time Departed Emergency Room [facility] 05/12/14 12:08am Departed Emergency Room [facility] 05/06/14 4:42pm Departed Emergency Room [facility] 04/09/14 10:17pm Recent Diagnosis
--- OUTSIDE RECORDS SUMMARY | 2016-08-21 01:39 | XMS REPORT | Continuity of Care Document ---
Author Author [facility] Organization [facility] Address Unknown Phone Unavailable Care Team Providers Care Geothermal Heat Pump Machinist Name Role Phone PATRIZIA ONOFRE MD Primary Care Physician [phone] Insurance Providers Payer Name Policy Number Subscriber Name Relationship Medicare [id number] Pravin Melton 18 Self [facility] Plan [id number] Pravin Melton 18 Self Advance Directives Directive [...] F (96.8 - 99.1) Temperature (Calculated Celsius) 36.66574 degrees C (36.0 - 37.3) Pulse Rate [...] 2008 6:00am Not Performed - Urine Specific [place] April 09, 2014 10:34pm 1.010 L - [...] Report April 10, 2014 3:42am REFERENCE LAB [id number] - EKG April 15, 2009 3:30am Complete [...] Encounters Encounter Location Date/Time Departed Emergency Room [facility] 04/09/14 10:17pm Recent Diagnosis
--- OUTSIDE RECORDS SUMMARY | 2016-08-21 01:40 | XMS REPORT | Continuity of Care Document ---
Author Author [facility] Organization [facility] Address Unknown Phone Unavailable Care Team Providers Care Operations Manager Station Name Role Phone PATRIZIA ONOFRE MD Primary Care Physician [phone] Insurance Providers Payer Name Policy Number Subscriber Name Relationship Medicare [id number] Pravin Melton 18 Self [facility] Plan [id number] Pravin Melton 18 Self Advance Directives Directive [...] F (96.8 - 99.1) Temperature (Calculated Celsius) 36.88412 degrees C (36.0 - 37.3) Temperature Source [...] 2008 6:00am Not Performed - Urine Specific [place] April 09, 2014 10:34pm 1.010 L - [...] Report April 10, 2014 3:42am REFERENCE LAB [id number] - EKG April 15, 2009 3:30am Complete [...] 2010 4:47am Procedures Procedure Status Date [facility] 04/09/14 ASSAY OF SALICYLATE completed 04/09/14 URINALYSIS AUTO W/O SCOPE completed 04/09/14 ASSAY OF ACETAMINOPHEN completed 04/09/14 ASSAY OF ETHANOL completed 04/09/14 ASSAY THYROID STIM HORMONE completed 04/09/14 COMPLETE CBC W/AUTO DIFF WBC completed 04/09/14 HYDRATION IV INFUSION INIT completed 04/09/14 EMERGENCY DEPT VISIT completed 04/09/14 [id number] ITEM OR SERVICE completed 04/09/14 completed 04/09/14 [id number]"INFUSION, NORMAL SALINE SOLUTION , 1000 CC" completed 04/09/14 Esophagogastroduodenoscopy (EGD) with closed biopsy completed 04/28/14 FLOYD ARROYO MD, FACS, CWS Encounters Encounter Location Date/Time Departed Emergency Room [facility] 04/09/14 10:17pm
[2016-08-21 01:42] LABS: THYROID STIM HORMONE-TSH 2.49 MIU/L (0.47-4.68)
== END 2016-08-21 01:15 | disposition home or self-care (01) ==
LOC: ED 00:10
DX: F31.60 Bipolar disorder, current episode mixed, unspecified (principal); Z79.899 Other long term (current) drug therapy
CPT/HCPCS: 36415; 80053; 80306; 80307; 81001; 84443; 85025; 96372; 99283; J2358

== ENCOUNTER 2016-09-06 13:37 | Emergency (ER) | payer MEDICARE, MEDICAID ==
[~2016-09-06] VITALS: Ht 180.3 cm; Wt 114.0 kg
[2016-09-06 13:41] VITALS: Ht 180.3 cm; Wt 114.0 kg
--- OUTSIDE RECORDS SUMMARY | 2016-09-06 13:41 | XMS REPORT | Continuity of Care Document ---
Author Author [facility] Organization [facility] Address Unknown Phone Unavailable Allergies Active Description Code Type Severity Reaction Onset Reported/Identified Relationship to Patient Clinical Status Yes NO NAME AVAILABLE 51444 DRUG N/A N/A Yes haloperidol NKMA N/A allergy 09/08/2013 Yes traZODone NKMA Medium allergy Adverse Reaction 09/08/2013 Yes HALOPERIDOL 21111 DRUG INGREDI High Anaphylaxis 07/05/2016 07/05/2016 Yes TRAZODONE 01951 DRUG INGREDI N/A Other 07/05/2016 07/05/2016 Medications [...] Status Pt. Type Provider Facility Loc./Unit Complaint [id number] 06/22/2013 10:19:00 06/22/2013 23 :59:59 CLS Outpatient
--- OUTSIDE RECORDS SUMMARY | 2016-09-06 13:42 | XMS REPORT | Continuity of Care Document ---
Author Author [facility] Organization [facility] Address Unknown Phone Unavailable Care Team Providers Care Employee Benefits Manager Name Role Phone PATRIZIA ONOFRE MD Primary Care Physician [phone] Insurance Providers Payer Name Policy Number Subscriber Name Relationship Medicare [id number] Pravin Melton 18 Self [employer] Plan [id number] Pravin Melton 18 Self Problems Medical Problems [...] F (96.8 - 99.1) Temperature (Calculated Celsius) 36.92348 degrees C (36.0 - 37.3) Pulse Rate [...] 2008 6:00am Not Performed - Urine Specific [place] April 09, 2014 10:34pm 1.010 L - [...] Report April 10, 2014 3:42am REFERENCE LAB [id number] - EKG April 15, 2009 3:30am Complete [...] completed 04/09/14 EMERGENCY DEPT VISIT completed 04/09/14 [id number] ITEM OR SERVICE completed 04/09/14 completed 04/09/14 [id number]"INFUSION, NORMAL SALINE SOLUTION , 1000 CC" completed 04/09/14 EGD BIOPSY SINGLE/MULTIPLE completed 04/28/14 FLOYD ARROYO MD, FACS, CWS ESOPH EGD DILATION <30 MM completed 04/28/14 FLOYD ARROYO MD, FACS, CWS CULTURE SCREEN ONLY completed 04/28/14 TISSUE EXAM BY PATHOLOGIST completed 04/28/14 [facility] 1 completed 04/28/14 [id number]"RINGERS LACTATE INFUSION, UP TO 1000 CC" completed 04/28/14 Encounters Encounter Location Date/Time Departed Emergency Room [facility] 05/06/14 4:42pm Departed Emergency Room [facility] 04/09/14 10:17pm Recent Diagnosis
--- OUTSIDE RECORDS SUMMARY | 2016-09-06 13:42 | XMS REPORT | Continuity of Care Document ---
Author Author [facility] Organization [facility] Address Unknown Phone Unavailable Care Team Providers Care Astro Technician Name Role Phone PATRIZIA ONOFRE MD Primary Care Physician [phone] Insurance Providers Payer Name Policy Number Subscriber Name Relationship Medicare [id number] Pravin Melton 18 Self [employer] Plan [id number] Pravin Melton 18 Self Problems Medical Problems [...] F (96.8 - 99.1) Temperature (Calculated Celsius) 36.88469 degrees C (36.0 - 37.3) Pulse Rate [...] 2008 6:00am Not Performed - Urine Specific [place] April 09, 2014 10:34pm 1.010 L - [...] Report April 10, 2014 3:42am REFERENCE LAB [id number] - EKG April 15, 2009 3:30am Complete [...] 2014 8:34am Name: PRAVIN MELTON Unit #: [id number] : 1980 Sex: M Loc / Svc: ED DOS: 05/06/14 Signed Report #: [id number] DIAGNOSTIC IMAGING REPORT TYPE OF EXAM: FOOT [...] completed 04/09/14 EMERGENCY DEPT VISIT completed 04/09/14 [id number] ITEM OR SERVICE completed 04/09/14 completed 04/09/14 [id number]"INFUSION, NORMAL SALINE SOLUTION , 1000 CC" completed 04/09/14 EGD BIOPSY SINGLE/MULTIPLE completed 04/28/14 FLOYD ARROYO MD, FACS, CWS ESOPH EGD DILATION <30 MM completed 04/28/14 FLOYD ARROYO MD, FACS, CWS CULTURE SCREEN ONLY completed 04/28/14 TISSUE EXAM BY PATHOLOGIST completed 04/28/14 SPECIAL STAINS GROUP 1 completed 04/28/14 [id number]"RINGERS LACTATE INFUSION, UP TO 1000 CC" completed 04/28/14 Encounters Encounter Location Date/Time Departed Emergency Room [facility] 05/12/14 12:08am Departed Emergency Room [facility] 05/06/14 4:42pm Departed Emergency Room [facility] 04/09/14 10:17pm Recent Diagnosis
--- OUTSIDE RECORDS SUMMARY | 2016-09-06 13:44 | XMS REPORT | Continuity of Care Document ---
Author Author [facility] Organization [facility] Address Unknown Phone Unavailable Care Team Providers Care Nutrition Services Worker Name Role Phone PATRIZIA ONOFRE MD Primary Care Physician [phone] Insurance Providers Payer Name Policy Number Subscriber Name Relationship Medicare [id number] Pravin Melton 18 Self [facility] Plan [id number] Pravin Melton 18 Self Advance Directives Directive [...] F (96.8 - 99.1) Temperature (Calculated Celsius) 36.00663 degrees C (36.0 - 37.3) Pulse Rate [...] 2008 6:00am Not Performed - Urine Specific [place] April 09, 2014 10:34pm 1.010 L - [...] Report April 10, 2014 3:42am REFERENCE LAB [id number] - EKG April 15, 2009 3:30am Complete [...] Encounters Encounter Location Date/Time Departed Emergency Room [facility] 04/09/14 10:17pm Recent Diagnosis
--- OUTSIDE RECORDS SUMMARY | 2016-09-06 13:44 | XMS REPORT | Continuity of Care Document ---
Author Author [facility] Organization [facility] Address Unknown Phone Unavailable Support Name Relationship Address Phone PRAVIN DUONG MD Caregiver [phone] [place] [address] Unavailable RITIKA WILLINGHAM MD Caregiver [phone] [address] Unavailable KEYA MELTON Next Of Kin [address], [place] [id number] Insurance Providers Guarantor Pravin Melton Address [address] [place] [address] Email DENIED 08-21-16 Payer Medicaid Policy Number [id number] Subscriber's Name Pravin Melton Relationship 18 Self Effective Date 16 Expiration Date 16 Payer Medicare Policy Number [id number] Subscriber's Name Pravin Melton Relationship 18 Self Effective Date 04 Advance Directives Directive Response Recorded Date/Time Advanced Directives Type None 08/21/16 12:10am Chief Complaint and Reason for Visit Chief Complaint Psychiatric Problems Reason for Visit Bipolar affective Problems Active Problems Medical Problem Onset Date [...] Medical Problem Onset Date Anger reaction Unknown Bipolar affective Unknown Chest pain Unknown Headache Unknown Hypokalemia [...] 08/04/15 Discontinued Divalproex Sodium (Depakote) 500 Mg Tablet., 1000 Mg Oral Bedtime 12/20/11 Discontinued Divalproex [...] Substance Use N HX OF SUBSTANCE ABUSE/MARIJUANA 08/21/2016 12:31am Not Applicable Not Applicable Hx Alcohol Use No 08/21/2016 12:31am Not Applicable Not Applicable Has the pt used tobacco in the last 12 months Yes 03/19/2016 6:36am Not Applicable Not Applicable Tobacco Usage smoke 10/14/2015 4:01pm Not Applicable Not Applicable Query Response Start Date Stop Date Smoking Status Current every day smoker Hospital Discharge Instructions No hospital discharge instructions. Plan of Care Discharge Date 08/21/16 1:15am Disposition 01 DISCHARGED HOME, SELF-CARE Condition at Discharge Improved Instructions/Education Provided Bipolar Disorder (ED) Prescriptions See Medication Section Referrals RITIKA WILLINGHAM MD Address: [address] [place] [address] [place] [phone] Additional Instructions/Education Take your routine medications as prescribed See [facility] tomorrow if your symptoms worsen. Care Plan and Goals Physician Care Plan Problem: Bipolar with psychotic features Goal: Follow up with primary care provider Instructions: Take medications and follow care plan as discussed/written Take your routine medications as prescribed See [facility] tomorrow if your symptoms worsen. Functional Status No functional status results. Allergies, [...] Vaccination No 05/06/14 5:16pm Influenza Vaccine Hx 04/201608/21/16 12:31am Vital Signs Acute Vital Signs Vital Response Date/Time Temperature (Fahrenheit) 98.4 deg F (96.8 - 99.1) 08/21/2016 1:15am Temperature (Calculated Celsius) 36.02457 degrees C (36.0 - 37.3) 08/21/2016 1:15am Pulse Rate (adult) 94 bpm (60 - 100) 08/21/2016 1:15am Respiratory Rate 19 breaths/min (10 - 20) 08/21/2016 1:15am O2 Sat by Pulse Oximetry 97 % (90 - 100) 08/21/2016 1:15am Blood Pressure 143/86 mm Hg 08/21/2016 1:15am Height (Feet) 5 feet 08/21/2016 12:10am Height (Inches) 11.00 inches 08/21/2016 12:10am Weight (Kilograms) 111.800 kg 08/21/2016 12:10am Body Mass Index (BMI) 34.0 08/21/2016 12:10am Results Laboratory Results Test Name Result Units [...] Comment NORMAL 07/03/2016 3:01pm 07/03/2016 3: 26pm Urinalysis Comment MICROSCOPIC NOT IND. 07/05/2016 5:42pm 2016 5:50pm White Blood Count 11.3 T/MM3 H 4.5-11.0 08/21/2016 12:28am 08/21/2016 12 :44am Red Blood Count 4.70 M/MM3 4.50-5.90 08/21/2016 12:28am 08/21/2016 12: 44am Hemoglobin 14.0 GM/DL 13.5-17.5 08/21/2016 12:28am 08/21/2016 12:44am Hematocrit 39.4 % L 41-53 08/21/2016 12:28am 08/21/2016 12:44am Mean Corpuscular Volume 83.8 UM3 80-100 08/21/2016 12:28am 08/21/2016 12:44am Mean Corpuscular Hemoglobin 29.8 UUG 26-34 08/21/2016 12:28am 2016 12:44am Mean Corpuscular Hemoglobin Concent 35.5 GM/DL 31-37 08/21/2016 12:08/21/2016 12:44am RDW Standard Deviation 39.2 FL 36.9-50.2 08/21/2016 12:08/21/2016 12:44am Platelet Count 270 T/MM3 130-400 08/21/2016 12:08/21/2016 12:44am Mean Platelet Volume 9.8 UM3 9.4-12.4 08/21/2016 12:08/21/2016 12: 44am Neutrophils (%) (Auto) 58.7 % 33-66 08/21/2016 12:08/21/2016 12: 44am Lymphocytes (%) (Auto) 31.3 % 23-45 08/21/2016 12:08/21/2016 12: 44am Monocytes (%) (Auto) 7.3 % 0-9.0 08/21/2016 12:08/21/2016 12:44am Eosinophils (%) (Auto) 1.7 % 0-4 08/21/2016 12:08/21/2016 12:44am Basophils (%) (Auto) 0.7 % 0-2 08/21/2016 12:08/21/2016 12:44am Immature Granulocyte % (Auto) 0.3 % 0.0-0.5 08/21/2016 12:2016 12:44am Absolute Neutrophils (auto) 6.6 T/MM3 1.8-7.7 08/21/2016 12:2016 12:44am Absolute Lymphocytes (auto) 3.5 T/MM3 1-4.8 08/21/2016 12:2016 12:44am Absolute Monocytes (auto) 0.8 T/MM3 0-0.8 08/21/2016 12:2016 12:44am Absolute Eosinophils (auto) 0.2 T/MM3 0-0.5 08/21/2016 12:2016 12:44am Absolute Basophils (auto) 0.1 T/MM3 0-0.2 08/21/2016 12:2016 12:44am Absolute Immature Granulocyte (auto 0.03 T/MM3 0.00-0.03 08/21/2016 12: 2808/21/2016 12:44am Icterus Index < 2 0-7 08/21/2016 12:2808/21/2016 12:48am Chemistry Specimen Hemolysis < 15 0-25 08/21/2016 12:2808/21/2016 12:48am 0-25: Specimen Exhibited No Hemolysis. Turbidity < 20 0-20 08/21/2016 12:2808/21/2016 12:48am Sodium Level 141 MEQ/L 134-144 08/21/2016 12:2808/21/2016 12:53am Potassium Level 3.6 MEQ/L 3.6-5 08/21/2016 12:2808/21/2016 12:53am Chloride Level 98 MEQ/L 98-107 08/21/2016 12:2808/21/2016 12:53am Carbon Dioxide Level 27 MEQ/L 22-30 08/21/2016 12:2808/21/2016 12: 53am Anion Gap 16 MEQ/L H 5-15 08/21/2016 12:2808/21/2016 12:53am Blood Urea Nitrogen 5.0 MG/DL L 9-20 08/21/2016 12:2808/21/2016 12: 53am Creatinine 0.7 MG/DL L 0.8-1.5 08/21/2016 12:2808/21/2016 12:53am BUN/Creatinine Ratio 7 RATIO 6-26 08/21/2016 12:2808/21/2016 12: 53am Glomerular Filtration Rate Calc 128 08/21/2016 12:2808/21/2016 12:53am Glucose Level 121 MG/DL H 75-110 08/21/2016 12:2808/21/2016 12:53am Calculated Osmolality 269 MOSM/KG 261-280 08/21/2016 12:282016 12:53am Calcium Level 10.0 MG/DL 8.4-10.2 08/21/2016 12:2808/21/2016 12: 53am Total Bilirubin 0.80 MG/DL 0.20-1.30 08/21/2016 12:2808/21/2016 12: 53am Alkaline Phosphatase 55 U/L 38-126 08/21/2016 12:08/21/2016 12: 53am Total Protein 7.3 G/DL 6.3-8.2 08/21/2016 12:08/21/2016 12:53am Albumin 4.4 G/DL 3.5-5.0 08/21/2016 12:08/21/2016 12:53am Globulin 2.9 G/DL 2.4-3.6 08/21/2016 12:08/21/2016 12:53am Albumin/Globulin Ratio 1.5 RATIO 1.1-2.2 08/21/2016 12:08/21/2016 12:53am Aspartate Amino Transf (AST/SGOT) 31 U/L 17-59 08/21/2016 12:08/21 12:53am Alanine Aminotransferase (ALT/SGPT) 43 U/L 21-72 08/21/2016 12:04/2017 12:53am Acetaminophen Level < 10 UG/ML L 10-30 08/21/2016 12:08/21/2016 12: 53am TOXIC <4 HR POST INGESTION: >150 MG/L; TOXIC <12 HR POST INGESTION: >50 MG/L Salicylates Level < 1.0 MG/DL L 2-20 08/21/2016 12:08/21/2016 12: 53am Alcohol, Quantitative <10 MG/DL <10 08/21/2016 12:08/21/2016 12: 53am Thyroid Stimulating Hormone (TSH) 2.49 MIU/L 0.47-4.68 08/21/2016 12: 08/21/2016 1:42am Urine Collection Type CLEANCATCH-MIDSTREAM 08/21/2016 12:3708/21 12:50am Urine Color YELLOW YELLOW 08/21/2016 12:3708/21/2016 12:50am Urine Turbidity CLEAR CLEAR 08/21/2016 12:3708/21/2016 12:50am Urine Specific [place] 1.020 1.015-1.025 08/21/2016 12:372016 12:50am Urine pH 7.0 5.0-8.0 08/21/2016 12:3708/21/2016 12:50am Urine Leukocyte Esterase NEGATIVE NEGATIVE 08/21/2016 12:37am 2016 12:50am Urine Nitrite NEGATIVE NEGATIVE 08/21/2016 12:37am 08/21/2016 12: 50am Urine Protein TRACE A NEGATIVE 08/21/2016 12:37am 08/21/2016 12:50am Urine Glucose (UA) NEGATIVE NEGATIVE 08/21/2016 12:37am 08/21/2016 12 :50am Urine Ketones NEGATIVE NEGATIVE 08/21/2016 12:37am 08/21/2016 12: 50am Urine Urobilinogen 0.2 EU/DL NORMAL 08/21/2016 12:37am 08/21/2016 12: 50am Urine Bilirubin NEGATIVE NEGATIVE 08/21/2016 12:37am 08/21/2016 12: 50am Urine Blood 1+ A NEGATIVE 08/21/2016 12:37am 08/21/2016 12:50am Urine WBC NONE SEEN /HPF 0-5 08/21/2016 12:37am 08/21/2016 1:05am Urine RBC 1-3 /HPF 0-3 08/21/2016 12:37am 08/21/2016 1:05am Urine Bacteria NONE SEEN NEGATIVE 08/21/2016 12:37am 08/21/2016 1: 05am Urine Mucus PRESENT 08/21/2016 12:37am 08/21/2016 1:05am Urine Culture Indicated CULT NOT INDICATED 08/21/2016 12:37am 08/21 1:05am Procedures Procedure Status Date Provider(s) Routine venipuncture Completed 07/03/16 Ct head/brain w/o dye Completed 07/03/16 Chest x-ray 2vw frontal&latl Completed 07/03/16 Comprehen metabolic panel Completed 07/03/16 Complete cbc w/auto diff wbc Completed 07/03/16 Hydrate iv infusion add-on Completed 07/03/16 Ther/proph/diag inj iv push Completed 07/03/16 Tx/pro/dx inj new drug addon Completed 07/03/16 Tx/pro/dx inj new drug addon Completed 07/03/16 Emergency dept visit Completed 07/03/16"INJECTION, PROCHLORPERAZINE, UP TO 10 MG" Completed 07/03/16742349"INJECTION, HYDROMORPHONE, UP TO 4 MG" Completed 07/03/16"INJECTION, DIPHENHYDRAMINE HCL, UP TO 50 MG" Completed 07/03/16 [id number]"INFUSION, NORMAL SALINE SOLUTION , 1000 CC" Completed 07/03/16 Routine venipuncture Completed 07/05/16 Ct head/brain w/o dye Completed 07/05/16 Comprehen metabolic panel Completed 07/05/16 Urinalysis auto w/o scope Completed 07/05/16 Complete cbc w/auto diff wbc Completed 07/05/16 Emergency dept visit Completed 07/05/16 [id number] ITEM OR SERVICE Completed 07/05/16 [id number] ITEM OR SERVICE Completed 07/05/16 DRUG TESTS, PRESUMPTIVE, ANY NUMBER OF PROCEDURES Completed 07/05/16 DRUG TESTS, PRESUMPTIVE, BY INSTRUMENTED CHEMISTRY ANALYZERS Completed DRUG TESTS, PRESUMPTIVE, BY INSTRUMENTED CHEMISTRY ANALYZERS Completed DRUG TESTS, PRESUMPTIVE, BY INSTRUMENTED CHEMISTRY ANALYZERS Completed Routine venipuncture Completed 07/11/16 Emergency dept visit Completed 07/11/16 Encounters Encounter Location Arrival/Admit Date Discharge/Depart Date Attending Provider Departed Emergency Room [facility] 08/21/16 12:10am 08/21/16 1: 15am PRAVIN DUONG MD Departed Emergency Room [facility] 07/11/16 6:39pm 07/11/16 7: 50pm JEANNIE SENA DO Departed Emergency Room [facility] 07/05/16 4:27pm 07/05/16 8: 41pm LISA FUENTES MD Departed Emergency Room [facility] 07/03/16 2:30pm 07/03/16 4: 10pm FABIANO MUÑOZ DO Recent Diagnosis
--- NOTE | 2016-09-06 13:45 | NUR ---
PERSONAL BELONGINGS: SHIRT, LIGHT JACKET, SHORTS, SHOES, CIGARETTE TELEPHONIC RN, KEYS, WALLET, CIGARETTES, & CELLPHONE PLACED IN BAG & LABELED. BAG PLACED IN SHOWER AREA
--- NOTE | 2016-09-06 13:45 | NUR ---
YANICK NAPIER IN ROOM WITH PT
--- OUTSIDE RECORDS SUMMARY | 2016-09-06 13:45 | XMS REPORT | Continuity of Care Document ---
Author Author [facility] Organization [facility] Address Unknown Phone Unavailable Care Team Providers Care Construction Quality Control Manager Name Role Phone PATRIZIA ONOFRE MD Primary Care Physician [phone] Insurance Providers Payer Name Policy Number Subscriber Name Relationship Medicare [id number] Pravin Melton 18 Self [facility] Plan [id number] Pravin Melton 18 Self Advance Directives Directive [...] F (96.8 - 99.1) Temperature (Calculated Celsius) 36.80304 degrees C (36.0 - 37.3) Temperature Source [...] 2008 6:00am Not Performed - Urine Specific [place] April 09, 2014 10:34pm 1.010 L - [...] Report April 10, 2014 3:42am REFERENCE LAB [id number] - EKG April 15, 2009 3:30am Complete [...] 2010 4:47am Procedures Procedure Status Date Provider(s) [facility] MET[facility]OLIC PANEL completed 04/09/14 ASSAY OF SALICYLATE completed 04/09/14 URINALYSIS AUTO W/O SCOPE completed 04/09/14 ASSAY OF ACETAMINOPHEN completed 04/09/14 ASSAY OF ETHANOL completed 04/09/14 ASSAY THYROID STIM HORMONE completed 04/09/14 COMPLETE CBC W/AUTO DIFF WBC completed 04/09/14 HYDRATION IV INFUSION INIT completed 04/09/14 EMERGENCY DEPT VISIT completed 04/09/14 [id number] ITEM OR SERVICE completed 04/09/14 completed 04/09/14 [id number]"INFUSION, NORMAL SALINE SOLUTION , 1000 CC" completed 04/09/14 Esophagogastroduodenoscopy (EGD) with closed biopsy completed 04/28/14 FLOYD ARROYO MD, FACS, CWS Encounters Encounter Location Date/Time Departed Emergency Room [facility] 04/09/14 10:17pm
--- NOTE | 2016-09-06 13:50 | ERPDOC ---
Departure Disposition Decision Date: Sep 06, 2016 Disposition Decision Time: 16:40 Disposition: 65 TO PSYCH HOSP/UNIT Impression Impression Impression: Primary Impression: Suicidal ideation Additional Impression: Hx of bipolar disorder Severity: Moderate Condition: Stable Seen By: Mid-level only Referrals: RITIKA WILLINGHAM MD (Family) Problems/Meds/Labs Reviewed?: Yes Medications reviewed and manag: Yes Follow up care ordered?: Yes Mental Status: Alert, Oriented HPI - Psychosocial General Chief Complaint: Suicide Ideation/Attempt Stated Complaint: PSYCH EVAL/SI Time Seen by MD: 13:47 Source: patient HPI - Psychosocial Initial Comments 36-year-old male sent to ER from [place] for medical screening to be admitted for suicidal ideation and depression to [facility]. Patient states that he has been feeling depressed for some time however today around 1130 he began to have increasing thoughts of killing himself. Wants to get help now before things progress. Patient says he's unsure if he has a specific plan however in the past he has overdosed. Patient has had other suicide attempts in the past, none for the past 2 years. Patient denies any recent illnesses however does say that he did wake up today with a sore throat. Denies fever, chills, rhinorrhea, sinus congestion or cough. Patient says he took "my prn buspirone" this morning. Jose Avery [facility] called from about patient and said that if patient medically cleared he is accepted at [place] by Dr. Collado. Occurred At: home Duration: 1-3 hrs Associated Symptoms: anxiety, suicidal ideation Allergies: Coded Allergies: haloperidol (Verified Allergy, Severe, SEIZURE, 09/06/16) trazodone (Verified Allergy, Unknown, PRIAPRISM, 09/06/16) Past History Patient Surgical History 1. right total hip arthroplasty Past Medical History Metabolic: hypercholesterolemia, hypertension ENMT: allergies Cardiac: DENIES: angina Respiratory: DENIES: asthma GI: GERD, ulcers Male: kidney stones Neurological: head injury, other Musculoskeletal: back pain, osteoarthritis, other Psychological: alcohol abuse, anxiety, bipolar, depression, drug abuse, other, personality disorder, suicide attempt Surgical History General: EGD Joint: hip Family History Family PMH: FOUND: [place], alcohol abuse, diabetes, hypertension Vaccines Hx Influenza Vaccination: Yes (2011) Hx Pneumococcal Vaccination: No Hx Tetanus Diptheria: No Hx Tetanus, Diptheria, Pertuss: No Social History # of Packs/Tins per Day: 1.5 Substance Use Type: does not use Alcohol Intake: none Review of Systems Constitutional Constitutional: DENIES: chills, dizziness, fever, weakness Eyes General: DENIES: erythema, exudate Lids/Accessories: DENIES: erythema, swelling ENMT Ears: DENIES: pain Sinuses: DENIES: congestion, rhinorrhea Mouth/Throat: sore throat (today) Cardiovascular Cardiac: DENIES: chest pain, murmur Rhythm/Rate: DENIES: palpitations Pulmonary Respiratory: DENIES: cough, dyspnea GI Upper Abdomen: DENIES: nausea, pain, vomiting Lower Abdomen: DENIES: diarrhea, pain General: DENIES: dysuria, pain Musculoskeletal General: DENIES: joint pain, pain, tenderness Integumentary Skin: DENIES: color change, itching, rash Neurological General: DENIES: ataxia, change in strength, numbness, paralysis/paresis, weakness Psychiatric Psychiatric: anxiety, depression Physical Exam General General Nourishment: well nourished, well developed, no acute distress, adult General Body Habitus: disheveled Vitals and Pain First Documented Vital Signs Date Time Temp Pulse Resp B/P Pulse Ox O2 Delivery O2 Flow Rate FiO2 09/06/16 13:41 97.9 91 20 134/62 97 Room Air Weight: Kilograms: Height (feet): 5 Height (inches): 11.00 Triage Pain Scale: Eyes (brief) Eyes Brief: found: EOMI, PERRL ENMT (brief) ENMT Brief: FOUND: TM clear, TM good light reflex, mucosa moist, pharnyx erythema, NOT FOUND: nasal exudate, nasal swelling, petechiae Neck (brief) Neck: FOUND: trachea midline, NOT FOUND: adenopathy, tenderness, thyromegaly Respiratory (brief) Respiratory: FOUND: clear all christy, equal bilaterally, symmetrical Cardiovascular (brief) Cardiac: FOUND: regular rate, regular rhythm Abdomen (brief) Abdominal Brief: FOUND: bowel normo active x4, soft, NOT FOUND: tender Musculoskeletal (brief) Musculoskeletal Brief: NOT FOUND: deformity, loss of motion Integumentary (brief) Integumentary Brief: FOUND: dry, pink, warm Neurologic (brief) Neurological Brief: FOUND: CN w/o gross def to obs, motor-no gross deficits, sensory-no gross deficits Psychiatric (brief) Psychiatric Brief: FOUND: alert, normal affect, oriented Differential Diagnoses Considering: Anxiety, Delirium, Depression, Hypoglycemia, Suicidal Ideation Progress Results/Orders Orders Procedure Category Date Status Time Nothing By Mouth (Ed EDM 09/06/16 Transmitted Only) 13:57 Cbc W/Auto LAB 09/06/16 Complete Diff-Reflex Manual 13:57 Bmp - Basic Metabolic LAB 09/06/16 Complete Panel 13:57 Ethanol LAB 09/06/16 Complete 13:57 Drug Screen LAB 09/06/16 Complete Urine-Test At [facility] 13:57 Acetaminophen LAB 09/06/16 Complete 13:57 Salicylate LAB 09/06/16 Complete 13:57 Ua, Dip Wreflex LAB 09/06/16 Complete Microsc & Senior Technical Support Engineer 13:57 Tsh - Thyroid Stim LAB 09/06/16 Complete Hormone 13:57 Strep A Antigen Screen LAB 09/06/16 Complete 13:57 Group A Strep Culture [facility] 09/06/16 In Process 14:18 Valproic Acid/Depakote LAB 09/06/16 Complete Lab Results Laboratory Tests Test 09/06/16 13:58 09/06/16 14:05 09/06/16 14:44 09/06/16 15:00 Valproic Acid (Depakene) Level 51.5UG/ML White Blood Count 14.6T/MM3 Red Blood Count 4.47M/MM3 Hemoglobin 13.3GM/DL Hematocrit 37.1% Mean Corpuscular Volume 83.0UM3 Mean Corpuscular Hemoglobin 29.8UUG Mean Corpuscular Hemoglobin Concent 35.8GM/DL RDW Standard Deviation 37.4FL Platelet Count 298T/MM3 Mean Platelet Volume 9.8UM3 Immature Granulocyte % (Auto) 0.4% Neutrophils (%) (Auto) 65.9% Lymphocytes (%) (Auto) 26.6% Monocytes (%) (Auto) 4.8% Eosinophils (%) (Auto) 1.8% Basophils (%) (Auto) 0.5% Absolute Immature Granulocyte (auto 0.06T/MM3 Absolute Neutrophils (auto) 9.6T/MM3 Absolute Lymphocytes (auto) 3.9T/MM3 Absolute Monocytes (auto) 0.7T/MM3 Absolute Eosinophils (auto) 0.3T/MM3 Absolute Basophils (auto) 0.1T/MM3 Turbidity < 20 Sodium Level 141MEQ/L Potassium Level 3.3MEQ/L Chloride Level 99MEQ/L Carbon Dioxide Level 28MEQ/L Anion Gap 14MEQ/L Blood Urea Nitrogen 8.0MG/DL Creatinine 0.8MG/DL Glomerular Filtration Rate Calc 109 BUN/Creatinine Ratio 10RATIO Glucose Level 139MG/DL Calculated Osmolality 271MOSM/KG Calcium Level 9.6MG/DL Icterus Index < 2 Thyroid Stimulating Hormone (TSH) 0.47MIU/L Chemistry Specimen Hemolysis < 15 Salicylates Level < 1.0MG/DL Acetaminophen Level < 10UG/ML Alcohol, Quantitative <10MG/DL Group A Streptococcus Screen Negative Urine Collection Type Voided-not cc-midstr Urine Color Yellow Urine Turbidity Clear Urine pH 5.5 Urine Specific [place] <=1.005 Urine Protein Negative Urine Glucose (UA) Negative Urine Ketones Negative Urine Blood Negative Urine Nitrite Negative Urine Bilirubin Negative Urine Urobilinogen 0.2EU/DL Urine Leukocyte Esterase Negative Urinalysis Comment Microscopic not ind. Urine Opiates Screen NegativeNG/ML Urine Oxycodone Screen NegativeNG/ML Urine Methadone Screen NegativeNG/ML Urine Propoxyphene Screen NegativeNG/ML Urine Barbiturates Screen NegativeNG/ML Urine Tricyclic Antidepressants NegativeNG/ML Urine Phencyclidine Screen NegativeNG/ML Urine Amphetamines Screen NegativeNG/ML Urine Methamphetamines Screen NegativeNG/ML Urine Benzodiazepines Screen NegativeNG/ML Urine Cocaine Screen NegativeNG/ML Urine Cannabinoids Screen NegativeNG/ML Lab Scanned Report REFERENCE [id number] Progress Progress Negative rapid step Patient declines anything for pain. WBC 14.6 (no shift) consistent with his his physiological stress CMP unremarkable UA unremarkable Patient sleeping. Wake easily to voice. Patient does agree to go voluntary to [place]. Consult/PCP Consult/PCP : Time Called: 16:40 Type of discussion: Admit Discussion/PCP Discussion Details I discussed patient's HPI, PMH, labs, exam findings, VS with Dr. Collado at [place]. Dr. Collado will accept patient at [place]. SERG FOOTE AUTOMATIC EMBROIDERY MACHINE TENDER Sep 06, 2016 13:50
--- OUTSIDE RECORDS SUMMARY | 2016-09-06 13:53 | XMS REPORT | Continuity of Care Document ---
Author Author [facility] Organization [facility] Address Unknown Phone Unavailable Care Team Providers Care Waste Management Engineer Name Role Phone PATRIZIA ONOFRE MD Primary Care Physician [phone] Insurance Providers Payer Name Policy Number Subscriber Name Relationship Medicare [id number] Pravin Melton 18 Self Mj [employer] Plan [id number] Pravin Melton 18 Self Problems Medical Problems [...] F (96.8 - 99.1) Temperature (Calculated Celsius) 36.20633 degrees C (36.0 - 37.3) Pulse Rate [...] 2008 6:00am Not Performed - Urine Specific [place] April 09, 2014 10:34pm 1.010 L - [...] Report April 10, 2014 3:42am REFERENCE LAB [id number] - EKG April 15, 2009 3:30am Complete [...] 2014 8:34am Name: PRAVIN MELTON Unit #: [id number] : [id number] Sex: M Loc / Svc: ED DOS: 05/06/14 Signed Report #: [id number] DIAGNOSTIC IMAGING REPORT TYPE OF EXAM: FOOT [...] completed 04/09/14 EMERGENCY DEPT VISIT completed 04/09/14 [id number] ITEM OR SERVICE completed 04/09/14 completed 04/09/14 [id number]"INFUSION, NORMAL SALINE SOLUTION , 1000 CC" completed 04/09/14 EGD BIOPSY SINGLE/MULTIPLE completed 04/28/14 FLOYD ARROYO MD, FACS, CWS ESOPH EGD DILATION <30 MM completed 04/28/14 FLOYD ARROYO MD, FACS, CWS CULTURE SCREEN ONLY completed 04/28/14 TISSUE EXAM BY PATHOLOGIST completed 04/28/14 SPECIAL STAINS GROUP 1 completed 04/28/14 [id number]"RINGERS LACTATE INFUSION, UP TO 1000 CC" completed 04/28/14 Encounters Encounter Location Date/Time Departed Emergency Room [facility] 05/12/14 12:08am Departed Emergency Room [facility] 05/06/14 4:42pm Departed Emergency Room [facility] 04/09/14 10:17pm Recent Diagnosis
--- OUTSIDE RECORDS SUMMARY | 2016-09-06 13:54 | XMS REPORT | Continuity of Care Document ---
Author Author [facility] Organization [facility] Address Unknown Phone Unavailable Care Team Providers Care Soda Drier Feeder Name Role Phone PATRIZIA ONOFRE MD Primary Care Physician [phone] Insurance Providers Payer Name Policy Number Subscriber Name Relationship Medicare [id number] Pravin Melton 18 Self Mj [employer] Plan [id number] Pravin Melton 18 Self Problems Medical Problems [...] F (96.8 - 99.1) Temperature (Calculated Celsius) 36.71274 degrees C (36.0 - 37.3) Pulse Rate [...] 2008 6:00am Not Performed - Urine Specific [place] April 09, 2014 10:34pm 1.010 L - [...] Report April 10, 2014 3:42am REFERENCE LAB [id number] - EKG April 15, 2009 3:30am Complete [...] completed 04/09/14 EMERGENCY DEPT VISIT completed 04/09/14 [id number] ITEM OR SERVICE completed 04/09/14 completed 04/09/14 [id number]"INFUSION, NORMAL SALINE SOLUTION , 1000 CC" completed 04/09/14 EGD BIOPSY SINGLE/MULTIPLE completed 04/28/14 FLOYD ARROYO MD, FACS, CWS ESOPH EGD DILATION <30 MM completed 04/28/14 FLOYD ARROYO MD, FACS, CWS CULTURE SCREEN ONLY completed 04/28/14 TISSUE EXAM BY PATHOLOGIST completed 04/28/14 SPECIAL STAINS GROUP 1 completed 04/28/14 [id number]"RINGERS LACTATE INFUSION, UP TO 1000 CC" completed 04/28/14 Encounters Encounter Location Date/Time Departed Emergency Room [facility] 05/06/14 4:42pm Departed Emergency Room [facility] 04/09/14 10:17pm Recent Diagnosis
--- NOTE | 2016-09-06 13:55 | NUR ---
STREP SWAB AQUIRED
--- NOTE | 2016-09-06 13:56 | NUR ---
REPORT TO VITO BOWER
--- OUTSIDE RECORDS SUMMARY | 2016-09-06 13:56 | XMS REPORT | Continuity of Care Document ---
Author Author [facility] Organization [facility] Address Unknown Phone Unavailable Care Team Providers Care Radiologic Technologist Mammogram Name Role Phone PATRIZIA ONOFRE MD Primary Care Physician [phone] Insurance Providers Payer Name Policy Number Subscriber Name Relationship Medicare [id number] Pravin Melton 18 Self [facility] Plan [id number] Pravin Melton 18 Self Advance Directives Directive [...] F (96.8 - 99.1) Temperature (Calculated Celsius) 36.19155 degrees C (36.0 - 37.3) Temperature Source [...] 2008 6:00am Not Performed - Urine Specific [place] April 09, 2014 10:34pm 1.010 L - [...] Report April 10, 2014 3:42am REFERENCE LAB [id number] - EKG April 15, 2009 3:30am Complete [...] 2010 4:47am Procedures Procedure [facility] 04[facility]09[facility]14 ASSAY OF SALICYLATE completed 04/09/14 URINALYSIS AUTO W/O SCOPE completed 04/09/14 ASSAY OF ACETAMINOPHEN completed 04/09/14 ASSAY OF ETHANOL completed 04/09/14 ASSAY THYROID STIM HORMONE completed 04/09/14 COMPLETE CBC W/AUTO DIFF WBC completed 04/09/14 HYDRATION IV INFUSION INIT completed 04/09/14 EMERGENCY DEPT VISIT completed 04/09/14 [id number] ITEM OR SERVICE completed 04/09/14 completed 04/09/14 [id number]"INFUSION, NORMAL SALINE SOLUTION , 1000 CC" completed 04/09/14 Esophagogastroduodenoscopy (EGD) with closed biopsy completed 04/28/14 FLOYD ARROYO MD, FACS, CWS Encounters Encounter Location Date/Time Departed Emergency Room [facility] 04/09/14 10:17pm
--- OUTSIDE RECORDS SUMMARY | 2016-09-06 13:56 | XMS REPORT | Continuity of Care Document ---
Author Author [facility] Organization [facility] Address Unknown Phone Unavailable Care Team Providers Care Shim Plug Cutter Name Role Phone PATRIZIA ONOFRE MD Primary Care Physician [phone] Insurance Providers Payer Name Policy Number Subscriber Name Relationship Medicare [id number] Pravin Melton 18 Self [facility] Plan [id number] Pravin Melton 18 Self Advance Directives Directive [...] F (96.8 - 99.1) Temperature (Calculated Celsius) 36.57625 degrees C (36.0 - 37.3) Pulse Rate [...] 2008 6:00am Not Performed - Urine Specific [place] April 09, 2014 10:34pm 1.010 L - [...] Report April 10, 2014 3:42am REFERENCE LAB [id number] - EKG April 15, 2009 3:30am Complete [...] Encounters Encounter Location Date/Time Departed Emergency Room [facility] 04/09/14 10:17pm Recent Diagnosis
[2016-09-06 14:13] LABS: BASOPHILS # (AUTO) 0.1 T/MM3 (0-0.2); BASOPHILS % (AUTO) 0.5 % (0-2); EOSINOPHILS # (AUTO) 0.3 T/MM3 (0-0.5); EOSINOPHILS % (AUTO) 1.8 % (0-4); HCT - HEMATOCRIT 37.1 % (41-53); HGB - HEMOGLOBIN 13.3 GM/DL (13.5-17.5); IMMATURE GRANULOCYTE # (AUTO) 0.06 T/MM3 (0.00-0.03); IMMATURE GRANULOCYTE % (AUTO) 0.4 % (0.0-0.5); LYMPHOCYTES # (AUTO) 3.9 T/MM3 (1-4.8); LYMPHOCYTES % (AUTO) 26.6 % (23-45); MEAN CORPUSCULAR HGB 29.8 UUG (26-34); MEAN CORPUSCULAR HGB CONC(MCHC 35.8 GM/DL (31-37); MEAN PLATELET VOLUME 9.8 UM3 (9.4-12.4); MONOCYTES # (AUTO) 0.7 T/MM3 (0-0.8); MONOCYTES % (AUTO) 4.8 % (0-9.0); NEUTROPHILS #(AUTO)-ABSOLUTE 9.6 T/MM3 (1.8-7.7); NEUTROPHILS % (AUTO) 65.9 % (33-66); RED BLOOD COUNT 4.47 M/MM3 (4.50-5.90); WBC - WHITE BLOOD COUNT 14.6 T/MM3 (4.5-11.0)
[2016-09-06 14:22] LABS: ACETAMINOPHEN < 10 UG/ML (10-30); ANION GAP 14 MEQ/L (5-15); BUN/CREATININE RATIO 10 RATIO (6-26); CALCIUM 9.6 MG/DL (8.4-10.2); CHLORIDE 99 MEQ/L (98-107); CO2 - CARBON DIOXIDE 28 MEQ/L (22-30); CREATININE 0.8 MG/DL (0.8-1.5); ETHANOL <10 MG/DL (<10); GLOMERULAR FILTRATION RATE 109; GLUCOSE 139 MG/DL (75-110); POTASSIUM 3.3 MEQ/L (3.6-5); SALICYLATE < 1.0 MG/DL (2-20); SODIUM 141 MEQ/L (134-144)
--- NOTE | 2016-09-06 14:40 | NUR ---
UA COLLECTED URINE IN A URINAL WITH LAB PRESENT FOR UDS. PT COOPERATIVE.
[2016-09-06 14:50] LABS: BLOOD, URINE NEGATIVE (NEGATIVE); COLOR,URINE YELLOW (YELLOW); LEUKOCYTE ESTERASE ,URINE NEGATIVE (NEGATIVE); NITRITE,URINE NEGATIVE (NEGATIVE); UROBILINOGEN,URINE 0.2 EU/DL (NORMAL)
[2016-09-06 14:57] LABS: AMPHETAMINE SCREEN,URINE NEGATIVE; BARBITURATE SCREEN,URINE NEGATIVE; BENZODIAZEPINES SCREEN,URINE NEGATIVE; COCAINE SCREEN,URINE NEGATIVE; METHAMPHETAMINE SCREEN, URINE NEGATIVE
[2016-09-06 14:58] LABS: CANNABINOID SCREEN,URINE NEGATIVE; METHADONE SCREEN, URINE NEGATIVE; OPIATE SCREEN,URINE NEGATIVE; PHENCYCLIDINE SCREEN,URINE NEGATIVE; TRICYCLIC ANTIDEPRESSANT,URINE NEGATIVE
[2016-09-06 15:20] LABS: THYROID STIM HORMONE-TSH 0.47 MIU/L (0.47-4.68)
[2016-09-06 17:00] VITALS: BP 141/66; PULSE 81; RESP 18; TEMP 97.9; O2SAT 93
--- NOTE | 2016-09-06 17:15 | NUR ---
REPORT GIVEN TO SHABANA BOWER AT [facility].
[2016-09-06] MEDS ORDERED: BUSP5TAB3 PO (17:16)
--- NOTE | 2016-09-06 17:20 | NUR ---
TRANSPORT APS NOTIFIED OF NEED FOR TRANSPORT. APS STATES THAT THEY WILL ARRIVE IN APPROX 40 MINUTES.
== END 2016-09-06 17:00 ==
LOC: ED 13:37
DX: Z02.2 Encounter for examination for admission to residential institution (principal); R45.851 Suicidal ideations; F32.9 Major depressive disorder, single episode, unspecified; Z79.899 Other long term (current) drug therapy
CPT/HCPCS: 36415; 80048; 80164; 80306; 80307; 81003; 84443; 85025; 87081; 87430

== ENCOUNTER 2016-12-10 12:07 | Inpatient (IN) ==
[2016-12-10] MEDS ORDERED: D5W IV ONE ×3 (12:23→18:00)
[2016-12-10] MEDS ORDERED: NS 1,000 ML IV ONE (12:23)
[2016-12-10] MEDS ORDERED: CHARCOAL Activated 25gm/120ml SUSP PO ONE (12:23)
[2016-12-10] MEDS ORDERED: SALINE FLUSH 10ml SYRINGE IVF PRN (12:23)
[2016-12-10] MEDS ORDERED: ACETYLCYSTEINE IV ONE ×3 (12:23→18:00)
[2016-12-10] MEDS ORDERED: PROMETHAZINE 25 MG INJECTION IVP ONE (12:29)
--- NOTE | 2016-12-10 13:19 | Emergency Department Report ---
Overdose HPI - General Chief Complaint: Overdose Stated Complaint: overdose Time Seen by Provider: 12/10/16 12:22 - History of Present Illness HPI Narrative: 36-year-old gentleman presents with acute acetaminophen overdose. Patient took approximately 35 tablets of extra strength Tylenol at approximately 11 AM. He immediately called EMS and was brought to the ED for evaluation. He denies wanting to . States that she is overwhelmed. He has to move from his apartment and he needed help getting his medications refilled. It sounds like Anne tiwari has been working with him trying to help him be more dependent. When he called for assistance on these things, he was told to use his own resources and to figure it out. He says he kept calling him for help, and they kept referring him back to find his own resources. He has not been sleeping well the last few days. He ran out of his psych meds on of last week and has not had them since then. He feels like he is falling apart inside. No other substances ingested by history. Denies alcohol or drug usage. Does smoke tobacco. Has previously felt suicidal, but did not attempt at that time. - Related Data Home Medications Medication Instructions Recorded Confirmed Atorvastatin Calcium [Lipitor] 10 mg PO HS #0 09/05/12 12/10/16 Infliximab [Remicade] 100 mg IV Q6W #0 04/10/14 12/10/16 Tramadol HCl [Ultram] 50 mg PO QID PRN #0 04/10/14 12/10/16 Divalproex Sodium [Divalproex 500 mg PO HS #0 10/14/15 12/10/16 Sodium ER] Duloxetine HCl 120 mg PO HS #0 10/14/15 12/10/16 Ziprasidone HCl 80 mg PO BID #0 10/14/15 12/10/16 Albuterol Sulfate [Ventolin Hfa] 2 puff INH Q4HR PRN #0 12/15/15 12/10/16 Esomeprazole Magnesium [Nexium] 40 mg PO DAILY #0 12/15/15 12/10/16 Fenofibrate 160 mg PO DAILY #0 12/15/15 12/10/16 Hydrocortisone Acetate 1 applic TOP BID PRN #0 12/15/15 12/10/16 [Hydrocortisone] Lactulose 10 g PO BID PRN #0 12/15/15 12/10/16 Metoclopramide HCl 10 mg PO DAILY PRN #0 12/15/15 12/10/16 Meloxicam 7.5 mg PO BID PRN #0 07/03/16 12/10/16 Acetaminophen [Acetaminophen Extra 1,000 mg PO Q4H PRN 12/10/16 12/10/16 Strength] Benztropine [Cogentin] 1 mg PO BID 12/10/16 12/10/16 Metoprolol Succinate 50 mg PO DAILY 12/10/16 12/10/16 OLANZapine [Olanzapine] 5 mg PO BID PRN 12/10/16 12/10/16 Allergies Allergy/AdvReac Type Severity Reaction Status Date / Time haloperidol Allergy Severe SEIZURE Verified 12/10/16 12:15 trazodone Allergy Unknown PRIAPRISM Verified 12/10/16 12:15 Review of Systems All systems: reviewed and negative except as stated PFSH Patient Stated Medical History Hypertension Yes Gastroesophageal Reflux Yes Disease Ulcer Yes Hx Kidney Stones Yes Other Musculoskeletal Yes: spondlyisis Shingles Yes Bipolar Disorder Yes: type 1 Other Behavioral Health Yes: boarderline personality disorder - Social History Smoking status: Current every day smoker Substance use type: does not use Alcohol intake frequency: does not drink Physical Exam - Normal Exams: Chest/Respirations:: Clear all christy, with good airflow, and symmetry bilaterally Cardiovascular:: Regular rate and rhythm, without murmur or gallop, Pulses 2+ all extremities, capillary refill, <2 seconds all extremities Abdomen:: Bowel sounds positive, soft, non-tender, non-distended, no hepatosplenomegaly, masses or bruits noted - Psychiatric Psychiatric exam: Present: depressed, anxious Course Vital Signs Temperature 98.4 F 12/10/16 12:09 Pulse Rate 127 H 12/10/16 12:09 Respiratory Rate 20 12/10/16 12:09 Blood Pressure 140/96 H 12/10/16 12:09 Pulse Oximetry 98 12/10/16 12:09 Temperature 98.4 F 12/10/16 12:09 Pulse Rate 91 12/10/16 15:05 Respiratory Rate 23 12/10/16 15:05 Blood Pressure 139/90 H 12/10/16 15:05 Pulse Oximetry 93 12/10/16 15:05 Overdose - MDM Narrative Medical decision making narrative: Patient was given charcoal in the emergency department because the initial dose given in the ambulance was vomited. He was able to get most of the second dose of charcoal down. Based on the reported dose of Tylenol, N-acetylcysteine was ordered and given fairly early in the process. Full 21 hour dose ordered through pharmacy. Early Tylenol level returned at 105, 4 hour Tylenol returned at 70. White count is elevated at 16 and glucose is elevated at 156. Patient did vomit quite profusely prior labs being drawn, this may account for some of elevated white count. Hospitalist is aware of the elevated white count. Tox screen is negative. Patient did not require any medication in the ER for anxiety , he was very cooperative and pleasant. He is referred to hospitalist service for ICU admission due to overdose. Pharmacy is consulted and following Tylenol levels. He will still need psychiatric clearance due to the suicide attempt/ gesture. - Lab Data Result diagrams: 12/10/16 11:56 12/10/16 12:45 Lab Results 12/10/16 12/10/16 12/10/16 Range/Units 11:56 11:56 12:45 WBC 16.1 H (4.5-11.0) T/MM3 RBC 5.50 (4.50-5.90) M/MM3 Hgb 16.1 (13.5-17.5) GM/DL Hct 45.1 (41-53) % MCV 82.0 (80-100) UM3 MCH 29.3 (26-34) UUG MCHC 35.7 (31-37) GM/DL RDW Std Deviation 37.7 (36.9-50.2) FL Plt Count 269 (130-400) T/MM3 MPV 10.8 (9.4-12.4) UM3 Immature Gran % (Auto) Not performed Neut % (Auto) Not performed Lymph % (Auto) Not performed [place] % (Auto) Not performed Eos % (Auto) Not performed Baso % (Auto) Not performed Neut # Not performed Lymph # Not performed [place] # Not performed Eos # Not performed Baso # Not performed Abs Immat Gran (auto) Not performed Neutrophils % (Manual) 81.0 H (33-66) % Lymphocytes % (Manual) 12.0 L (23-45) % Monocytes % (Manual) 5.0 (0-9.0) % Basophils % (Manual) 2.0 (0-2) % Neutrophils # (Manual) 13.0 H (1.8-7.7) T/MM3 Lymphocytes # (Manual) 1.9 (1-4.8) T/MM3 Monocytes # (Manual) 0.8 (0-0.8) T/MM3 Basophils # (Manual) 0.3 H (0-0.2) T/MM3 RBC Morph Comment Normal INR 1.12 (0.99-1.21) Turbidity < 20 (0-20) Sodium 144 (134-144) MEQ/L Potassium 3.5 L (3.6-5) MEQ/L Chloride 103 (98-107) MEQ/L Carbon Dioxide 24 (22-30) MEQ/L Anion Gap 17 H (5-15) MEQ/L BUN 14.0 (9-20) MG/DL Creatinine 0.8 (0.8-1.5) MG/DL GFR Calculation 109 BUN/Creatinine Ratio 18 (6-26) RATIO Glucose 156 H (75-110) MG/DL Calculated Osmolality 281 H (261-280) MOSM/KG Calcium 10.2 (8.4-10.2) MG/DL Total Bilirubin 0.70 (0.20-1.30) MG/DL Icterus Index < 2 (0-7) AST 36 (17-59) U/L ALT 65 (21-72) U/L Alkaline Phosphatase 61 (38-126) U/L Ammonia 25 (9-33) UMOL/L Total Protein 7.7 (6.3-8.2) G/DL Albumin 4.8 (3.5-5.0) G/DL Globulin 2.9 (2.4-3.6) G/DL Albumin/Globulin Ratio 1.7 (1.1-2.2) RATIO Lipase 152 (23-300) U/L Plasma Lactate 4.1 H* (0.6-2.2) MMOL/L Specimen Hemolysis < 15 (0-25) Ur Collection Type Urine Color (YELLOW) Urine Clarity Urine pH (5.0-8.0) Ur Specific [place] (1.015-1.025) Urine Protein (NEGATIVE) Urine Glucose (UA) (NEGATIVE) Urine Ketones (NEGATIVE) Urine Occult Blood (NEGATIVE) Urine Nitrate (NEGATIVE) Urine Bilirubin (NEGATIVE) Urine Urobilinogen (NORMAL) EU/DL Ur Leukocyte Esterase (NEGATIVE) Urine RBC (0-3) /HPF Urine WBC (0-5) /HPF Ur Squamous Epith Cells Urine Bacteria (NEGATIVE) Hyaline Casts /LPF Urine Mucus Ur Culture Indicated? Salicylates < 1.0 L (2-20) MG/DL Urine Opiates Screen ng/mL Ur Oxycodone Screen ng/mL Urine Methadone Screen ng/mL Ur Propoxyphene Screen ng/mL Acetaminophen 105 H (10-30) UG/ML Ur Barbiturates Screen ng/mL U Tricyclic Antidepress ng/mL Ur Phencyclidine Scrn ng/mL Ur Amphetamines Screen ng/mL U Methamphetamines Scrn ng/mL U Benzodiazepines Scrn ng/mL Urine Cocaine Screen ng/mL U Cannabinoids Screen ng/mL Alcohol, Quantitative <10 (<10) MG/DL 12/10/16 12/10/16 12/10/16 Range/Units 14:11 14:11 14:57 WBC (4.5-11.0) T/MM3 RBC (4.50-5.90) M/MM3 Hgb (13.5-17.5) GM/DL Hct (41-53) % MCV (80-100) UM3 MCH (26-34) UUG MCHC (31-37) GM/DL RDW Std Deviation (36.9-50.2) FL Plt Count (130-400) T/MM3 MPV (9.4-12.4) UM3 Immature Gran % (Auto) Neut % (Auto) Lymph % (Auto) [place] % (Auto) Eos % (Auto) Baso % (Auto) Neut # Lymph # [place] # Eos # Baso # Abs Immat Gran (auto) Neutrophils % (Manual) (33-66) % Lymphocytes % (Manual) (23-45) % Monocytes % (Manual) (0-9.0) % Basophils % (Manual) (0-2) % Neutrophils # (Manual) (1.8-7.7) T/MM3 Lymphocytes # (Manual) (1-4.8) T/MM3 Monocytes # (Manual) (0-0.8) T/MM3 Basophils # (Manual) (0-0.2) T/MM3 RBC Morph Comment INR (0.99-1.21) Turbidity (0-20) Sodium (134-144) MEQ/L Potassium (3.6-5) MEQ/L Chloride (98-107) MEQ/L Carbon Dioxide (22-30) MEQ/L Anion Gap (5-15) MEQ/L BUN (9-20) MG/DL Creatinine (0.8-1.5) MG/DL GFR Calculation BUN/Creatinine Ratio (6-26) RATIO Glucose (75-110) MG/DL Calculated Osmolality (261-280) MOSM/KG Calcium (8.4-10.2) MG/DL Total Bilirubin (0.20-1.30) MG/DL Icterus Index (0-7) AST (17-59) U/L ALT (21-72) U/L Alkaline Phosphatase (38-126) U/L Ammonia (9-33) UMOL/L Total Protein (6.3-8.2) G/DL Albumin (3.5-5.0) G/DL Globulin (2.4-3.6) G/DL Albumin/Globulin Ratio (1.1-2.2) RATIO Lipase (23-300) U/L Plasma Lactate 1.4 (0.6-2.2) MMOL/L Specimen Hemolysis (0-25) Ur Collection Type Urine, clean catch Urine Color Yellow (YELLOW) Urine Clarity Clear Urine pH 6.0 (5.0-8.0) Ur Specific [place] 1.010 L (1.015-1.025) Urine Protein 1+ A (NEGATIVE) Urine Glucose (UA) Negative (NEGATIVE) Urine Ketones 2+ A (NEGATIVE) Urine Occult Blood 1+ A (NEGATIVE) Urine Nitrate Negative (NEGATIVE) Urine Bilirubin Negative (NEGATIVE) Urine Urobilinogen 0.2 (NORMAL) EU/DL Ur Leukocyte Esterase Negative (NEGATIVE) Urine RBC 0-1 (0-3) /HPF Urine WBC 0-1 (0-5) /HPF Ur Squamous Epith Cells None seen Urine Bacteria Trace H (NEGATIVE) Hyaline Casts 0-1 /LPF Urine Mucus Present Ur Culture Indicated? Cult not indicated Salicylates (2-20) MG/DL Urine Opiates Screen Negative ng/mL Ur Oxycodone Screen Negative ng/mL Urine Methadone Screen Negative ng/mL Ur Propoxyphene Screen Negative ng/mL Acetaminophen 72 H (10-30) UG/ML Ur Barbiturates Screen Negative ng/mL U Tricyclic Antidepress Negative ng/mL Ur Phencyclidine Scrn Negative ng/mL Ur Amphetamines Screen Negative ng/mL U Methamphetamines Scrn Negative ng/mL U Benzodiazepines Scrn Negative ng/mL Urine Cocaine Screen Negative ng/mL U Cannabinoids Screen Negative ng/mL Alcohol, Quantitative (<10) MG/DL Disposition Clinical Impression: Tylenol overdose Disposition: 02 To [facility] [place] Acute Care Condition: Improved Prescriptions: No Action Metoclopramide HCl 10 mg PO DAILY PRN #0 PRN Reason: HEARTBURN Fenofibrate 160 mg PO DAILY #0 Esomeprazole Magnesium [Nexium] 40 mg PO DAILY #0 Hydrocortisone Acetate [Hydrocortisone] 1 applic TOP BID PRN #0 PRN Reason: PRN ORDERS OLANZapine [Olanzapine] 5 mg PO BID PRN PRN Reason: Prn Orders Acetaminophen [Acetaminophen Extra Strength] 1,000 mg PO Q4H PRN PRN Reason: Pain Atorvastatin Calcium [Lipitor] 10 mg PO HS #0 Infliximab [Remicade] 100 mg IV Q6W #0 Tramadol HCl [Ultram] 50 mg PO QID PRN #0 PRN Reason: PAIN Divalproex Sodium [Divalproex Sodium ER] 500 mg PO HS #0 Ziprasidone HCl 80 mg PO BID #0 Duloxetine HCl 120 mg PO HS #0 Lactulose 10 g PO BID PRN #0 PRN Reason: Prn Orders Albuterol Sulfate [Ventolin Hfa] 2 puff INH Q4HR PRN #0 PRN Reason: WHEEZING Meloxicam 7.5 mg PO BID PRN #0 PRN Reason: PAIN Benztropine [Cogentin] 1 mg PO BID Metoprolol Succinate 50 mg PO DAILY Referrals: Julius Smith MD [Family Provider] - Time of Disposition: 15:28 - Seen By: physician
--- NOTE | 2016-12-10 13:51 | XRay Report ---
INDICATION: overdose PROCEDURE: CHEST 2-VIEWS UPRIGHT (PA & LAT) Encounter: Initial COMPARISON: July 03, 2016 FINDINGS: The lungs are clear without evidence of focal abnormal airspace opacity. There is no pleural effusion or pneumothorax. The heart size, mediastinal contours and pulmonary vascularity are within normal limits. There is no significant skeletal abnormality. IMPRESSION: No acute cardiopulmonary disease. .
[2016-12-10 16:42] VITALS: BMI 35.4
[2016-12-10] MEDS ORDERED: NS FLUSH BAG 500ml IV PRN (16:56)
--- NOTE | 2016-12-10 17:13 | History & Physical Report ---
History of Present Illness Date: 12/10/16 HPI: This is a 36-year-old gentleman, with H.O Bipolar dissorder on treatment with a psychiatrist with Depakote, Duloxetine and Ziprazodone, that apparently ran out of his medications several days ago, and was in the process of "moving out of his appartment" when he felt "Overwhelmed" due to "Everything being on my plate " - states [facility] help him [facility] his stuff and move out (??) - then he decided to take approximately 35 tablets of extra strength Tylenol at approximately 11 AM. He then called immediately and came to the hospital. He states he really did not want to , he just did it because he needed help. When asked other questions he stated he is very stressed and does not want to talk anymore about the incident. He appears not be hallucinating and oriented x 3 Review of Systems ROS unobtainable: due to mental status Review of systems: Pt stated he was too stressed to talk more. [facility] Patient Stated Medical History Angina Yes Hypertension Yes Sleep Apnea Yes Gastroesophageal Reflux Yes Disease Ulcer Yes Hx Kidney Stones Yes Other Musculoskeletal Yes: spondlyisis Shingles Yes Bipolar Disorder Yes: type 1 Other Behavioral Health Yes: boarderline personality disorder - Social History Smoking status: Current every day smoker Substance use type: does not use Last drink: unknown Housing: other ([place] did not specify) Household members: other (Did not specify) Current occupational status: other (Did not comment) Current occupation: Did not comment Current occupational exposures/hazards: No Does patient use chewing tobacco?: No Medications Home Medications Medication Instructions Recorded Confirmed Type Atorvastatin Calcium [Lipitor] 10 mg PO HS #0 09/05/12 12/10/16 History Infliximab [Remicade] 100 mg IV Q6W #0 04/10/14 12/10/16 History Tramadol HCl [Ultram] 50 mg PO QID PRN #0 04/10/14 12/10/16 History Divalproex Sodium [Divalproex 500 mg PO HS #0 10/14/15 12/10/16 History Sodium ER] Duloxetine HCl 120 mg PO HS #0 10/14/15 12/10/16 History Ziprasidone HCl 80 mg PO BID #0 10/14/15 12/10/16 History Albuterol Sulfate [Ventolin Hfa] 2 puff INH Q4HR PRN #0 12/15/15 12/10/16 History Esomeprazole Magnesium [Nexium] 40 mg PO DAILY #0 12/15/15 12/10/16 History Fenofibrate 160 mg PO DAILY #0 12/15/15 12/10/16 History Hydrocortisone Acetate 1 applic TOP BID PRN #0 12/15/15 12/10/16 History [Hydrocortisone] Lactulose 10 g PO BID PRN #0 12/15/15 12/10/16 History Metoclopramide HCl 10 mg PO DAILY PRN #0 12/15/15 12/10/16 History Meloxicam 7.5 mg PO BID PRN #0 07/03/16 12/10/16 History Acetaminophen [Acetaminophen Extra 1,000 mg PO Q4H PRN 12/10/16 12/10/16 History Strength] Benztropine [Cogentin] 1 mg PO BID 12/10/16 12/10/16 History Metoprolol Succinate 50 mg PO DAILY 12/10/16 12/10/16 History OLANZapine [Olanzapine] 5 mg PO BID PRN 12/10/16 12/10/16 History Allergies Allergy/AdvReac Type Severity Reaction Status Date / Time haloperidol Allergy Severe SEIZURE Verified 12/10/16 12:15 trazodone Allergy Unknown PRIAPRISM Verified 12/10/16 12:15 Exam Vital Signs: Temperature 98.4 F 12/10/16 12:09 Pulse Rate 94 12/10/16 16:04 Respiratory Rate 20 12/10/16 16:04 Blood Pressure 144/92 H 12/10/16 16:04 Pulse Oximetry 93 12/10/16 16:04 Telemetry Rhythm: Sinus Rhythm Height: 5 ft 11 in Weight: 115.1 kg Body Mass Index: 35.4 - Constitutional Present: no acute distress, mild distress, obese, disheveled - Routine HEENT Exam Head: Present: normocephalic, atraumatic Eye: Present: EOMI, PERRL - Routine Neck Exam Present: supple - Routine Chest/Breast/Axilla Exam Chest wall: Absent: tenderness, mass Axillae: Absent: lymphadenopathy - Routine Respiratory Exam Present: CTA bilaterally - Routine Cardiovascular Exam Present: RRR, S1, S2 - Routine Abdominal Exam Present: soft, non distended Comments: Has RLQ tenderness with no evident rebound tenderness. - Routine Extremities Exam Absent: cyanosis, clubbing, edema - Routine Neurological Exam Present: alert, oriented X3, CN II-XII intact - Routine Psychiatric Exam Absent: cooperative, good insight, good judgment Results - Labs CBC & Chem 7: 12/10/16 11:56 12/10/16 12:45 Assessment and Plan DVT Prophylaxis: SCD's GI Prophylaxis: Protonix Resuscitation Status: Full Code Assessment and Plan: This is a 36 YO male that came for acetaminophen OD and received activated charcoal, and NAC and is on NAC protoccol. He had a high Lactic acid at 4.1 that then normalized. His WBC count was high at 16K with L shift Diagnosis 1) H.O Bipolar dissorder with a suicidal gesture. Pt judgement is severely impaired he was expecting the staff from a psych facility to go to his house and help him move out (??)./ - Will need to be seen by Psychiatry - Check Valproate level - May eat. 2) APAP OD - Continue with NAC per protoccol. - Check CMP in the AM. 3) RLQ pain, with possible rebound. - If WBC repeat is high may consider checking a CT abdomen as appendicitis is possible. 4) HTN ? 5) ? of autoimmune disease ? Psoriasis ? pt on TNF blockers and topical prednisone - Time spent with patient 25 - 35 minutes Hospital Course Summary Disclaimer: The visit summary below is not to be considered part of the above Progress Note.
[2016-12-10] MEDS: ONDANSETRON 4 MG/2 ML INJECTION IVP PRN (23:58)
[2016-12-10] MEDS: Oxycodone *IR* 5 MG TABLET PO PRN (23:59)
[2016-12-11] MEDS: ONDANSETRON 4 MG/2 ML INJECTION IVP PRN (04:34)
[2016-12-11] MEDS: Oxycodone *IR* 5 MG TABLET PO PRN ×3 (04:34→13:18)
--- NOTE | 2016-12-11 08:48 | Progress Note ---
Subjective: Pt states he is feeling fine. Overnight was placed on suicidal watch. Will have psychiatry see him today. Objective Vital signs: Temperature 97.7 F 12/11/16 07:00 Pulse Rate 86 12/11/16 07:01 Respiratory Rate 22 12/11/16 07:01 Blood Pressure 138/64 12/11/16 07:01 Pulse Oximetry 88 L 12/11/16 07:01 Oxygen Delivery Method Room Air Oxygen Flow Rate 2 Rhythm: Normal Sinus Rhythm Weight: 115.6 kg - Constitutional Present: no acute distress, obese - Routine HEENT Exam Head: Present: normocephalic, atraumatic Eye: Present: EOMI, PERRL - Routine Respiratory Exam Present: CTA bilaterally - Routine Cardiovascular Exam Present: RRR, S1, S2 - Routine Abdominal Exam Present: soft, non distended, non tender - Routine Extremities Exam Absent: cyanosis, clubbing, edema - Routine Skin Exam Present: intact. Absent: cyanosis, erythema - Routine Neurological Exam Present: alert, oriented X3, CN II-XII intact - Routine Psychiatric Exam Present: depressed Results - Labs CBC & Chem 7: 12/11/16 04:20 12/11/16 04:20 Assessment and Plan Assessment and Plan: This is a 36 YO male that came for acetaminophen OD and received activated charcoal, and N-Acetyl cysteine; he is currently finishing his NAC drip, LFT are normal today. On admission his lactic acid was high as well as his WBC, these 2 values normalized on recheck yesterday. Diagnosis 1) APAP OD - Continue with NAC per protoccol. Drip to be finishing soon - Check LFT's in the AM. 2) H.O Bipolar disorder with a suicidal gesture - most likely in a pt whose judgement is severely impaired (He was expecting the staff from a psych facility to go to his house and help him move out). - Will consult Psychiatry - Will resume psych meds. - Continue suicide precautions. 3) RLQ pain, better, WBC is normal now. 4) HTN ? - Resume home meds 5) ? of autoimmune disease ? Psoriasis ? pt on TNF blockers and topical prednisone PREVENTION DVT - SCD PUD - OMEPRAZOLE. Sepsis Assessment - Evaluation Sepsis screening result: No Definite Risk Hospital Course Summary Disclaimer: The visit summary below is not to be considered part of the above Progress Note.
[2016-12-11] MEDS ORDERED: ALBUTEROL 2.5mg/3ml (0.083%) NEB IH PRN (08:59)
[2016-12-11] MEDS ORDERED: OLANZapine 5 MG TABLET PO PRN ×2 (08:59→14:00)
[2016-12-11] MEDS ORDERED: ZIPRASIDONE 40 MG CAPSULE PO SCH (09:00)
[2016-12-11] MEDS: BENZTROPINE 1 MG TABLET PO SCH ×2 (10:17→21:29)
[2016-12-11] MEDS: LORazepam 2 MG TABLET PO PRN ×2 (14:12→21:29)
[2016-12-11] MEDS: OMEPRAZOLE 20 MG CAPSULE PO SCH (18:17)
--- NOTE | 2016-12-11 18:42 | Neuropsychiatric Consult ---
[facility] HPI Date: 12/11/16 Reason for Consultation: suicide attempt Start Time: 18:00 Stop Time: 18:30 History of Present Illness: HPI: 36 Y?O CM with a long hx of mental illness admitted for intentioal OD on Tylenol. PT was given charcoal and Mucomyst. On face to face the pt states he is trying to move and feels he has no help. He states he called the mental health center for help and when they refused he "decided to hurt myself". Pt is some what ambivalent on whether this was a SA but states he did realize it could hurt him. P was having S/I today and tried to elope from the medical floor. Pt states he does not feel safe to go home. STRESSORS: Pt states he is trying to move and he has no help which was overwhelming to him. He states he has also been without meds for 1 week. PSYCH ROS: PT reports some depression with low interest and motivation. He reports some issues falling asleep and S/I. He is a some what poor historian. he carries a diagnosis of Bipolar D/O but is not able to give a clear Bipolar HX. He reports feeling anxious but states it is tied to his current stressors. He reports some psychotic symptoms in the past but none currently. PAST PSYCH: Pt is seen at and has a med provider, a therapist, and a caser. He has been on numerous medications in the past. He is currently on Geodon, Depakote, and Cymbalta. He reports he has had approximately 15 hospitalizations in the past. The first was around age 12 and the last was a few months ago at [facility]. He has had numerous OD attempts in the past. SUBSTANCE ABUSE: Denies any substance abuse for the past year. [facility] Patient Stated Medical History Angina Yes Hypertension Yes Sleep Apnea Yes Gastroesophageal Reflux Yes Disease Ulcer Yes Hx Kidney Stones Yes Other Musculoskeletal Yes: spondlyisis Shingles Yes Bipolar Disorder Yes: type 1 Other Behavioral Health Yes: boarderline personality disorder - Social History Smoking status: Current every day smoker Substance use type: does not use Does patient use chewing tobacco?: No Review of Systems - Psychiatric Psychiatric: Present: anxiety, behavioral changes, depression, hopelessness, mood swings, suicidal ideation Mental Status Exam Vitals: Last Vital Signs Temp 97.3 F 12/11/16 12:00 Pulse 110 H 12/11/16 18:19 Resp 16 12/11/16 17:00 BP 146/100 H 12/11/16 18:19 Pulse Ox 97 12/11/16 18:19 Height: 1.8 m Weight: 116.9 kg - Mental Status Exam Muscle Strength/Tone: Normal Dressing: Casual Grooming: Good Attitude: Guarded Motor Activity: Retardation Eye Contact: Fair Speech: Slowed Volume: Soft Rhythm: Appropriate Rhythm Orientation: Oriented X4 Mood: Depressed Affect: Angry Rate of Thoughts: Delayed Thought Organization: [place] Associations: Intact Abstract Reasoning: Intact, able to abstract Thought Content: Helplessness Perception/Psychotic: Hx psychosis, not current Fund of Knowledge: Poor fund of knowledge Memory: Grossly Intact Suicidal Ideation: Plan Homicidal Ideation: Denies Insight: Poor Judgement: Poor Impulse Control: Poor - Laboratory Result Diagrams: 12/11/16 04:20 12/11/16 04:20 Laboratory Results - last 24 hr 12/11/16 12/11/16 04:20 04:20 WBC 9.6 RBC 5.24 Hgb 15.1 Hct 42.9 MCV 81.9 MCH 28.8 MCHC 35.2 RDW Std Deviation 37.5 Plt Count 247 MPV 10.9 Immature Gran % (Auto) 0.2 Neut % (Auto) 56.3 Lymph % (Auto) 34.1 [place] % (Auto) 6.3 Eos % (Auto) 2.3 Baso % (Auto) 0.8 Neut # 5.4 Lymph # 3.3 [place] # 0.6 Eos # 0.2 Baso # 0.1 Abs Immat Gran (auto) 0.02 Turbidity < 20 Sodium 144 Potassium 3.4 L Chloride 103 Carbon Dioxide 28 Anion Gap 13 BUN 12.0 Creatinine 0.8 GFR Calculation 109 BUN/Creatinine Ratio 15 Glucose 109 Calculated Osmolality 278 Calcium 9.8 Total Bilirubin 0.50 Conjugated Bilirubin 0.00 Unconjugated Bilirubin 0.10 Icterus Index < 2 AST 18 D ALT 43 Alkaline Phosphatase 44 D Total Protein 6.7 Albumin 4.1 Globulin 2.6 Albumin/Globulin Ratio 1.6 Specimen Hemolysis < 15 Assessment and Plan (1) Bipolar disorder current episode depressed Current visit: Yes Status: Acute Continue medical management. We will stop Geodon and use Zyprexa PRN to help with agitation while in the hospital. Continue Depakote and Cymbalta. PT will need IP psychiatric hospitalization when medically stable. Do not allow pt to leave AMA
[2016-12-11] MEDS: OLANZapine 10 MG TABLET PO PRN (21:29)
[2016-12-11] MEDS ORDERED: DULOXETINE 60 MG CAPSULE PO SCH (22:00)
[2016-12-11] MEDS ORDERED: ATORVASTATIN 10 MG TABLET PO SCH (22:00)
[2016-12-12 04:11] VITALS: TEMP 97.9
[2016-12-12] MEDS: OMEPRAZOLE 20 MG CAPSULE PO SCH (06:56)
[2016-12-12] MEDS: BENZTROPINE 1 MG TABLET PO SCH (09:17)
[2016-12-12 09:22] VITALS: RESP 16
[2016-12-12] MEDS: LORazepam 2 MG TABLET PO PRN (10:14)
[2016-12-12 11:12] VITALS: BP 144/89; PULSE 107; O2SAT 90
--- NOTE | 2016-12-12 13:01 | Discharge Summary ---
Discharge Information Date of admission: 12/10/16 16:25 Attending Physician: Kevin Velez MD Primary care physician: Julius Smith MD Consults: 12/11/16 08:20 Physician Consult [CONS] Routine Consulting Provider: Saroj Lubin Reason For Exam: suicide attempt/tylenol OD Ordering Provider has Notified Bottom Sprayer: Yes - Discharge Diagnosis Discharge Diagnosis: 1) Overdose with Acetaminophen. - Pt called soon after taking the OD. He received Charcoal, and was given [id number] per protoccol. - LFT's have remained stable after 72 hrs. 2) Bipolar disorder with depressed mood. - Seen by Psychiatrist yesterday - will be going to inpatient psych. 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 Disposition to inpatient psychiatry NOW - Procedures Procedures: Pt received NAC bolus and drip per protoccol for Acetaminophen overdose. - Laboratory Labs: 12/12/16 04:30 12/12/16 04:30 History of Present Illness HPI: This is a 36-year-old gentleman, with H.O Bipolar dissorder on treatment with a psychiatrist with Depakote, Duloxetine and Ziprazodone, that apparently ran out of his medications several days ago, and was in the process of "moving out of his appartment" when he felt "Overwhelmed" due to "Everything being on my plate " - states was expecting the staff from his psych hospital to help him pack his stuff and move out (??) - then he decided to take approximately 35 tablets of extra strength Tylenol at approximately 11 AM. He then called immediately and came to the hospital. He states he really did not want to , he just did it because he needed help. When asked other questions he stated he is very stressed and does not want to talk anymore about the incident. He appears not be hallucinating and oriented x 3 Objective Vital signs: Temperature 97.9 F 12/12/16 08:00 Pulse Rate 107 H 12/12/16 11:11 Respiratory Rate 16 12/12/16 11:11 Blood Pressure 144/89 H 12/12/16 11:11 Pulse Oximetry 90 12/12/16 11:11 Oxygen Delivery Method Room Air Oxygen Flow Rate 2 Rhythm: Normal Sinus Rhythm Weight: 114.6 kg - Constitutional Present: no acute distress - Routine HEENT Exam Head: Present: normocephalic, atraumatic Eye: Present: EOMI, PERRL - Routine Respiratory Exam Present: CTA bilaterally - Routine Cardiovascular Exam Present: RRR - Routine Abdominal Exam Present: soft, non distended, non tender - Routine Extremities Exam Present: cyanosis, clubbing - Routine Skin Exam Present: intact - Routine Neurological Exam Present: alert, oriented X3, CN II-XII intact - Routine Psychiatric Exam Present: normal affect, cooperative, good insight, good judgment Hospital Course This is a general summary of the patient's hospital course. For more details refer to the complete medical record. Time spent with patient: 25 - 35 minutes DVT Prophylaxis: SCD's GI Prophylaxis: Protonix Discharge Plan - Med Rec/Dispo Alexei Instructions: Suicide Prevention for Older Adults (DC), Acetaminophen Overdose (DC) Prescriptions: New LORazepam [Ativan] 2 mg PO TID PRN tablet PRN Reason: Agitation Oxycodone *Ir* [Roxicodone *Ir*] 5 mg PO Q4H PRN tablet PRN Reason: Pain Continue Metoclopramide HCl 10 mg PO DAILY PRN #0 PRN Reason: HEARTBURN Fenofibrate 160 mg PO DAILY #0 Esomeprazole Magnesium [Nexium] 40 mg PO DAILY #0 Hydrocortisone Acetate [Hydrocortisone] 1 applic TOP BID PRN #0 PRN Reason: PRN ORDERS OLANZapine [Olanzapine] 5 mg PO BID PRN PRN Reason: Prn Orders Atorvastatin Calcium [Lipitor] 10 mg PO HS #0 Infliximab [Remicade] 100 mg IV Q6W #0 Tramadol HCl [Ultram] 50 mg PO QID PRN #0 PRN Reason: PAIN Divalproex Sodium [Divalproex Sodium ER] 500 mg PO HS #0 Duloxetine HCl 120 mg PO HS #0 Lactulose 10 g PO BID PRN #0 PRN Reason: Prn Orders Albuterol Sulfate [Ventolin Hfa] 2 puff INH Q4HR PRN #0 PRN Reason: WHEEZING Meloxicam 7.5 mg PO BID PRN #0 PRN Reason: PAIN Benztropine [Cogentin] 1 mg PO BID Metoprolol Succinate 50 mg PO DAILY Discontinued Acetaminophen [Acetaminophen Extra Strength] 1,000 mg PO Q4H PRN PRN Reason: Pain Ziprasidone HCl 80 mg PO BID #0 - Disposition 65 To Psych Hosp/Unit
[2016-12-12] MEDS: OLANZapine 10 MG TABLET PO PRN (13:24)
== END 2016-12-12 14:15 | DRG 918 ==
LOC: ED 12:07 → CCU 16:22 → MED 12-11 13:27
PROVIDERS: ADMIT Internal Medicine; ATTEND Internal Medicine